=== PATIENT | male | born 1965 | race Caucasian/White ===

== ENCOUNTER 2017-10-05 01:15 | Emergency (ER) | payer MEDICAID ==
[~2017-10-05] VITALS: Ht 172.7 cm; Wt 81.6 kg
[2017-10-05 01:15] VITALS: BP 126/89
--- NOTE | 2017-10-05 01:15 | NUR ---
PT ANDIE MYERS. TAKEN TO BED 11
--- NOTE | 2017-10-05 01:25 | NUR ---
Dr. Saul evaluating patient at bedside.
--- NOTE | 2017-10-05 01:30 | NUR ---
LAB AT BEDSIDE
[2017-10-05 01:43] LABS: BASOPHILS % (AUTO) 0.6 % (0.0-2.0); EOSINOPHILS % (AUTO) 11.7 % (0.0-4.0); HEMATOCRIT 32.9 % (36-52); HEMOGLOBIN 11.5 g/dL (12.0-18.0); LYMPHOCYTES # (AUTO) 2.4 K/uL (2.0-11.5); LYMPHOCYTES % (AUTO) 27.4 % (20.5-51.1); MEAN CORPUSCULAR HEMOGLOBIN 29 pg (27-31); MEAN CORPUSCULAR HGB CONC 35 g/dL (33-37); MEAN CORPUSCULAR VOLUME 84.1 fL (80-94); MONOCYTES # (AUTO) 0.7 K/uL (0.8-1.0); MONOCYTES % (AUTO) 7.4 % (1.7-9.3); NEUTROPHILS # (AUTO) 4.7 K/uL (1.8-7.7); NEUTROPHILS % (AUTO) 52.9 % (42.2-75.2); PLATELET COUNT (AUTO) 128 K/uL (140-450); RED BLOOD CELL COUNT(AUTO) 3.91 MIL/uL (4.20-6.10); RED CELL DISTRIBUTION WIDTH 12.7 % (11.6-13.7); WHITE BLOOD COUNT (AUTO) 8.9 K/uL (4.8-10.8)
--- NOTE | 2017-10-05 01:45 | NUR ---
PT RESTING COMFORTABLY IN BED, PT AOX2, FORGETFUL AT TIMES, BEDREST AT THIS TIME. PT BIBA FOR DISLODGED L UPPER CHEST DIALYSIS CATH. PT HAS GTUBE, COLOSTOMY, SUPRAPUBIC CATH. OPEN WOUNDS NOTED ON BUTTOCKS AND PENILE SHAFT. ALL NEEDS MET AT THIS TIME.
--- NOTE | 2017-10-05 01:56 | NUR ---
X-Ray at bedside.
[2017-10-05 01:58] LABS: CHOL/HDL RATIO 3.3 (1-4.5)
[2017-10-05 01:59] LABS: ALBUMIN 3.7 g/dL (3.4-5.0); ANION GAP 13.9 (8-16); CARBON DIOXIDE 29.3 mmol/L (21-32); CREATININE 3.6 mg/dL (0.7-1.3); POTASSIUM 3.2 mmol/L (3.5-5.1); TOTAL BILIRUBIN 0.3 mg/dL (0.0-1.0)
[2017-10-05 02:07] LABS: CREATINE KINASE MB 2.6 ng/mL (0-3.6)
[2017-10-05] MEDS ORDERED: NACL 0.9% 1,000 ML IV SCH (02:28)
[2017-10-05] MEDS ORDERED: ZOLPIDEM 5 MG TAB PO PRN (02:30)
[2017-10-05] MEDS ORDERED: LORazepam 2 MG/ML VIAL IM/IVP PRN (02:30)
[2017-10-05] MEDS ORDERED: ACETAMINOPHEN 325 MG TAB PO PRN (02:30)
[2017-10-05] MEDS ORDERED: HYDROcodone/APAP 5/325 MG 1 TAB TAB PO PRN (02:30)
[2017-10-05] MEDS ORDERED: MORPHINE SULFATE 2 MG/ML SYR IVP PRN (02:30)
[2017-10-05] MEDS ORDERED: ONDANSETRON 4 MG/2 ML VIAL IM/IVP PRN (02:30)
[2017-10-05] MEDS ORDERED: DOCUSATE SODIUM 100 MG GELCAP PO PRN (02:30)
[2017-10-05 02:50] LABS: APPEARANCE,URINE CLOUDY (CLEAR); BILIRUBIN,URINE NEGATIVE (NEGATIVE); BLOOD, URINE 1+ (NEGATIVE); COLOR,URINE YELLOW (YELLOW); NITRITE, URINE NEGATIVE (NEGATIVE); PH,URINE 5.5 (5.0-9.0); UGLUCOSE NEGATIVE (NEGATIVE)
[2017-10-05 02:58] LABS: BARBITURATE, URINE NEG. ng/ml (NEG <=200); BENZODIAZEPINE, URINE NEG. ng/mL (NEG <=200); CANNABINOID, URINE NEG. ng/mL (NEG <=50); COCAINE, URINE NEG. ng/mL (NEG <=300); OPIATE, URINE NEG. ng/mL (NEG <=2000); PHENCYCLIDINE SCREEN,URINE NEG. ng/mL (NEG <=25)
[2017-10-05 02:59] LABS: MAGNESIUM 2.5 mg/dL (1.8-2.4); PHOSPHORUS 6.3 mg/dL (2.5-4.9); THYROID STIMULATING HORMONE 1.62 uIU/mL (0.34-3.74)
--- NOTE | 2017-10-05 02:59 | NUR ---
Dr. Sheehan evaluating patient at bedside.
[2017-10-05 03:03] LABS: PROTHROMBIN TIME 10.4 secs (10.8-13.4)
--- NOTE | 2017-10-05 03:45 | NUR ---
PT SLEEPING COMFORTABLY IN BED, RR EVEN AND UNLABORED, VSS, ALL NEEDS MET AT THIS TIME.
--- NOTE | 2017-10-05 04:21 | NUR ---
Patient to be transferred to [facility]. Is being transferred due to DISLODGED EMERY CATH. Receiving facility has accepting physician and available space. ER physician has signed transfer form. Patient or responsible constitution party has agreed to transfer and signed form. Patient belongings inventoried and will be sent with patient. Copy of nursing notes, lab reports, EKG, Physicians Orders and X-rays to be sent with patient. Report called to TERESA MAYS at receiving facility. [facility] ambulance service has been called for transfer. ETA is 1 HR.
--- NOTE | 2017-10-05 04:54 | NUR ---
[facility] AT BEDSIDE
[2017-10-05 04:58] VITALS: BP 119/76
--- NOTE | 2017-10-05 04:58 | NUR ---
ENDORSED REPORT TO [facility]SPORT AT THIS TIME. VSS.
--- NOTE | 2017-10-05 05:09 | NUR ---
PT TAKEN BY [facility]SP[facility] TO [facility]
[2017-10-05 06:02] LABS: RBC,URINE 0-5 (RARE) /HPF (0-5)
[2017-10-05 06:04] LABS: LEUKOCYTE ESTERASE ,URINE 3+ (NEGATIVE)
[2017-10-05 06:06] LABS: YEAST,URINE Few /HPF (None Seen)
[2017-10-06 08:22] LABS: T4 (THYROXINE) 9.6 ug/dL (4.5-12.0)
--- NOTE | 2017-10-06 16:37 | NUR ---
PATIENT TRANSFERED TO [facility] URINE CULTURE RETURNED POSITIVE FOR YEAST NO SUSCEPTABILITY REPORT AT THIS TIME.
== END 2017-10-05 05:09 | disposition short-term general hospital (02) ==
LOC: MED 01:15
DX: T82.41XA Breakdown (mechanical) of vascular dialysis catheter, initial encounter (principal); N18.6 End stage renal disease; Z99.2 Dependence on renal dialysis
CPT/HCPCS: 36415; 71045; 80053; 80061; 80305; 81001; 82550; 82553; 83036; 83735; 83880; 84100; 84134; 84436; 84443; 84479; 84484; 85025; 85610; 85730; 87086; 93005; 99285; Q0092

== ENCOUNTER 2017-10-31 13:54 | Inpatient (IN) | payer MEDICAID ==
[~2017-10-31] VITALS: Ht 167.6 cm; Wt 81.2 kg
--- NOTE | 2017-10-31 13:54 | NUR ---
PT BIBA TO ER BED 04
[2017-10-31 13:58] VITALS: BP 112/70
[2017-10-31] MEDS ORDERED: NACL 0.9% 1,000 ML IV ONE (14:08)
[2017-10-31] MEDS ORDERED: LORazepam 2 MG/ML VIAL IVP ONE (14:10)
[2017-10-31] MEDS ORDERED: ONDANSETRON 4 MG/2 ML VIAL IVP ONE (14:10)
--- NOTE | 2017-10-31 14:10 | NUR ---
52 YO M BIBA W/C/O LEFT ARM PAIN RADIATING TO L CHEST. PT AWAKE ALERT AND ORIENTED . EMS STATES THAT PT WAS 2 HRS IN TO DIALYSIS, WHEN PAIN STARTED, PT WANTED TO STOP DIALYSIS. PT RESEVED 24ASA IN ROUTE. PT DENIES ANY SOB, PT WITH N/V ON ARRIVAL. BS 140 INROUTE. ROGERS CATH TO R UPPER CHEST, SUPRAPUBIC FOLY, COLOSTOMY. LS CLEAR THROUGHOUT, BS ACTIVE. WILL CONTINUE TO MONITOR HX OF HTN, DM. DIALYSIS TUS,MARIYA,SAT
[2017-10-31] MEDS ORDERED: VITA1TAB44 PO (14:31)
[2017-10-31] MEDS ORDERED: LORA-476 PO (14:31)
[2017-10-31] MEDS ORDERED: ACET-2619 PO (14:31)
[2017-10-31] MEDS ORDERED: LACT10SO1 PO (14:31)
[2017-10-31] MEDS ORDERED: TRAM50TA1 PO (14:31)
[2017-10-31] MEDS ORDERED: PRO5 PO (14:31)
[2017-10-31] MEDS ORDERED: LACT1CAP59 PO (14:31)
[2017-10-31] MEDS ORDERED: ABI10 PO (14:31)
[2017-10-31] MEDS ORDERED: DOCU-299 PO (14:31)
[2017-10-31] MEDS ORDERED: HUM SUBQ (14:31)
[2017-10-31] MEDS ORDERED: ASCO500T45 PO (14:31)
[2017-10-31] MEDS ORDERED: ATOR20TA PO (14:31)
[2017-10-31] MEDS ORDERED: PHO667 PO (14:31)
[2017-10-31] MEDS ORDERED: SENN-72 PO (14:31)
--- NOTE | 2017-10-31 14:39 | NUR ---
RN AND LAB AT BEDSIDE ADMINISTRATIVE AIDE TO ATTEMPT ABG AT A LATER TIME NO SOB NOTED
--- NOTE | 2017-10-31 15:00 | NUR ---
X RAY AT BEDSIDE
--- NOTE | 2017-10-31 15:09 | NUR ---
RT AT BEDSIDE
[2017-10-31 15:15] LABS: BASOPHILS # (AUTO) 0.1 K/uL (0.00-0.22); BASOPHILS % (AUTO) 0.7 % (0.0-2.0); EOSINOPHILS % (AUTO) 13.3 % (0.0-4.0); HEMATOCRIT 34.2 % (36-52); HEMOGLOBIN 11.1 g/dL (12.0-18.0); LYMPHOCYTES # (AUTO) 1.5 K/uL (2.0-11.5); MEAN CORPUSCULAR HEMOGLOBIN 28 pg (27-31); MEAN CORPUSCULAR HGB CONC 32 g/dL (33-37); MEAN CORPUSCULAR VOLUME 86.1 fL (80-94); MONOCYTES # (AUTO) 0.5 K/uL (0.8-1.0); MONOCYTES % (AUTO) 5.8 % (1.7-9.3); NEUTROPHILS # (AUTO) 4.8 K/uL (1.8-7.7); NEUTROPHILS % (AUTO) 61.2 % (42.2-75.2); PLATELET COUNT (AUTO) 150 K/uL (140-450); RED BLOOD CELL COUNT(AUTO) 3.97 MIL/uL (4.20-6.10); RED CELL DISTRIBUTION WIDTH 12.4 % (11.6-13.7); WHITE BLOOD COUNT (AUTO) 7.9 K/uL (4.8-10.8)
[2017-10-31 15:41] LABS: ALBUMIN 4.6 g/dL (3.4-5.0); CARBON DIOXIDE 27.1 mmol/L (21-32); CREATININE 1.8 mg/dL (0.7-1.3); POTASSIUM 3.1 mmol/L (3.5-5.1); TOTAL BILIRUBIN 0.6 mg/dL (0.0-1.0)
--- NOTE | 2017-10-31 15:49 | NUR ---
CRITICAL LAB VALUE RECEIVED AT THIS TIME, LACTIC ACID 2.4, ER MD LIZANDRO RICE DPRIMARY NURSE NOTIFIED.
[2017-10-31 15:55] LABS: AMYLASE 67 U/L (25-115); LIPASE 132 U/L (73-393)
--- NOTE | 2017-10-31 17:20 | NUR ---
PT RESTING IN BED IN NO APPEARENT DISTRESS
[2017-10-31] MEDS ORDERED: ONDANSETRON 4 MG/2 ML VIAL IVP PRN (19:25)
[2017-10-31] MEDS ORDERED: MORPHINE SULFATE 2 MG/ML SYR IVP PRN (19:25)
--- NOTE | 2017-10-31 20:20 | NUR ---
RECEIVED REPORT FROM DAY SHIFT RN FOR CONTINUITY OF CARE. PT IS A/OX1, ON ROOM AIR, CHINESE SPEAKING ONLY. PT IS ABLE TO MAKE NEEDS KNOWN, ABLE TO FOLLOW COMMANDS. RESPIRATIONS EVEN AND UNLABORED AT THE MOMENT. PT HAS DRY AND REDDENED SKIN ON BUTTOCKS/SACRAL AREA, BUT SKIN IS INTACT. PT HAS 24G IV TO RIGHT HAND, ASYMPTOMATIC, INTACT AND PATENT. PT HAS A COLOSTOMY BAG TO LUQ AND A SUPRAPUBIC CATHETER. OBTAINED MRSA SWAB AND SENT TO LAB. DISCUSSED PLAN OF CARE WITH PT, PT VERBALIZED UNDERSTANDING. VITAL SIGNS WITHIN NORMAL LIMITS. PT STABLE, NO SIGNS OF DISTRESS NOTED AT THIS TIME. BED IN LOWEST POSITION, BED ALARM ON. CALL LIGHT WITHIN REACH, WILL CONTINUE TO MONITOR.
--- NOTE | 2017-10-31 20:24 | NUR ---
Patient will be admitted to care of DR. ARTEAGA. Admited to TELE. Will go to ro[facility] 114. Belongings list completed. Report to JUDI MOORE.
[2017-10-31 21:50] LABS: PROTHROMBIN TIME 9.2 secs (10.8-13.4)
[2017-10-31 22:00] VITALS: BP 116/73
[2017-11-01] VITALS: BP 109/72
--- NOTE | 2017-11-01 | NUR ---
VITAL SIGNS WITHIN NORMAL LIMITS. PT STABLE, NO SIGNS OF DISTRESS NOTED AT THIS TIME. BED IN LOWEST POSITION, BED ALARM ON. CALL LIGHT WITHIN REACH, WILL CONTINUE TO MONITOR.
[2017-11-01 04:00] VITALS: BP 106/71
--- NOTE | 2017-11-01 06:35 | NUR ---
CHANGED COLOSTOMY BAG AND CLEANED PT.
--- NOTE | 2017-11-01 07:31 | NUR ---
ENDORSED PT TO DAY SHIFT RN FOR CONTINUITY OF CARE. PT IN STABLE CONDITION.
--- NOTE | 2017-11-01 07:32 | NUR ---
RECEIVED PT ON BED, AAO WITH PERIODS OF CONFUSION, REORIENTATION PROVIDED. NO SOB NOTED. NO C/O PAIN AT THIS TIME. IV TO LT HAND PATENT AND INTACT. CHEST CLEAR. ABDOMEN SOFT, BOWEL SOUNDS PRESENT, WITH COLOSTOMY TO LT LOWER QUADRANT, NEW BAG APPLIED BY NIGHTSHIFT, NO STOOLS NOTED YET. WITH CROW DRAINING MODERATE AMOUNTS OF CLOUDY, ALLISON URINE. INSTRUCTED PT TO CALL FOR ASSISTANCE, CALL LIGHT WITHIN REACH, PT VERBALIZED PARTIAL UNDERSTANDING.
[2017-11-01 07:36] LABS: BASOPHILS # (AUTO) 0.1 K/uL (0.00-0.22); BASOPHILS % (AUTO) 0.7 % (0.0-2.0); EOSINOPHILS # (AUTO) 1.5 K/uL (0-0.4); EOSINOPHILS % (AUTO) 20.6 % (0.0-4.0); HEMOGLOBIN 9.8 g/dL (12.0-18.0); LYMPHOCYTES # (AUTO) 2.1 K/uL (2.0-11.5); MEAN CORPUSCULAR HEMOGLOBIN 29 pg (27-31); MEAN CORPUSCULAR HGB CONC 34 g/dL (33-37); MEAN CORPUSCULAR VOLUME 85.3 fL (80-94); MONOCYTES # (AUTO) 0.6 K/uL (0.8-1.0); MONOCYTES % (AUTO) 8.1 % (1.7-9.3); NEUTROPHILS # (AUTO) 2.9 K/uL (1.8-7.7); NEUTROPHILS % (AUTO) 40.6 % (42.2-75.2); PLATELET COUNT (AUTO) 127 K/uL (140-450); RED CELL DISTRIBUTION WIDTH 12.3 % (11.6-13.7); WHITE BLOOD COUNT (AUTO) 7.1 K/uL (4.8-10.8)
[2017-11-01 07:59] VITALS: BP 104/69
[2017-11-01 07:59] LABS: CREATINE KINASE MB 10.1 ng/mL (0-3.6)
[2017-11-01 07:59] LABS: APPEARANCE,URINE SL CLOUDY (CLEAR); BILIRUBIN,URINE NEGATIVE (NEGATIVE); BLOOD, URINE 2+ (NEGATIVE); COLOR,URINE YELLOW (YELLOW); LEUKOCYTE ESTERASE ,URINE 3+ (NEGATIVE); NITRITE, URINE NEGATIVE (NEGATIVE); PH,URINE 6.5 (5.0-9.0); UGLUCOSE NEGATIVE (NEGATIVE)
[2017-11-01 08:06] LABS: ALBUMIN 3.7 g/dL (3.4-5.0); CARBON DIOXIDE 28.1 mmol/L (21-32); CREATININE 2.2 mg/dL (0.7-1.3); MAGNESIUM 1.8 mg/dL (1.8-2.4); PHOSPHORUS 2.8 mg/dL (2.5-4.9); POTASSIUM 3.1 mmol/L (3.5-5.1); TOTAL BILIRUBIN 0.4 mg/dL (0.0-1.0)
[2017-11-01 08:11] LABS: RBC,URINE 3-10 (FEW) /HPF (0-5); WBC,URINE 80-100 /HPF (0-5)
--- NOTE | 2017-11-01 08:35 | NUR ---
PT CONSUMED 60% OF BREAKFAST SERVED. FOOD TOLERATED WELL.
[2017-11-01] MEDS ORDERED: ENOXAPARIN 30 MG/0.3 ML SYR SUBQ SCH (09:00)
[2017-11-01] MEDS ORDERED: ASPIRIN 325 MG TAB PO SCH (09:00)
--- NOTE | 2017-11-01 10:00 | NUR ---
PT STATED THAT HE LOST HIS PAIR OF GLASSES AND CELLPHONE. CHECKED PT'S ROOM, FOUND PT'S GLASSES UNDERNEATH THE SHEET, PT'S CELL PHONE WAS FOUND IN THE NURSE'S STATION BEING CHARGED. GAVE PT HIS GLASSES AND CELLPHONE, INSTRUCTED TO KEEP IT WITHIN HIM. PT VERBALIZED UNDERSTANDING.
[2017-11-01 12:00] VITALS: BP 91/59
--- NOTE | 2017-11-01 12:10 | NUR ---
PT ATE 50% OF LUNCH SERVED. FOOD TOLERATED WELL.
--- NOTE | 2017-11-01 13:00 | NUR ---
PT'S 4TH TROPONIN RESULT IS NEGATIVE. NO C/O CHEST PAIN NOTED.
--- NOTE | 2017-11-01 13:59 | NUR ---
CALLED KEVIN GUALLPA AND GAVE ME THE [facility]IC TRANSPORTATION . SPOKE TO [facility] AND GAVE RESERVATION# [phone]. MICAELA MOORE MADE AWARE.
--- NOTE | 2017-11-01 15:00 | NUR ---
REPORT GIVEN TO RIO AT [facility] WHERE PT CAME FROM ([phone]), PT IS GOING BACK TO ROOM 602-BED B. VOICEMAIL MESSAGE LEFT TO PT'S SON GUILLERMO BARTHOLOMEW ([phone]) REGARDING THE DISCHARGE. DRAINED 380 MLS OF SLIGHTLY CLOUDY URINE FROM SUPRAPUBIC CATHETER. NO OUTPUT NOTED ON COLOSTOMY, BAG CLEAN AND INTACT. RT CHEST HD DIALYSIS CATHETER IN PLACE, SITE CLEAN AND DRY. DISCHARGE INSTRUCTIONS GIVEN TO PT, VERBALIZED UNDERSTANDING. ARM BANDS AND IV REMOVED, CANNULA TIP INTACT.
--- NOTE | 2017-11-01 15:10 | NUR ---
PT WHEELED OUT TO THE PARKING LOT AND HELPED TRANSFERRED TO THE TRANSPORT VEHICLE. PT IS D/C BACK TO [facility] IN STABLE CONDITION. NO COMPLAINTS MADE, ALL BELONGINGS WITH HIM, GLASSES, CELLPHONE AND WHEELCHAIR.
--- NOTE | 2017-11-03 09:25 | NUR ---
RETRO FAXED ER REPORT, H&P AND DISCHARGE INSTRUCTIONS TO [facility] [phone] AND [facility]ENNEY [facility]ARMS/[facility] [phone]
== END 2017-11-01 15:10 | DRG 203 ==
LOC: MED 13:54 → OBSVTOIN 19:30 → MTU 19:30
PROVIDERS: ADMIT Hospitalist; ATTEND Hospitalist
DX: M94.0 Chondrocostal junction syndrome [Tietze] (principal); G37.3 Acute transverse myelitis in demyelinating disease of central nervous system; E11.22 Type 2 diabetes mellitus with diabetic chronic kidney disease; N18.6 End stage renal disease; I12.0 Hypertensive chronic kidney disease with stage 5 chronic kidney disease or end stage renal disease; E78.5 Hyperlipidemia, unspecified; D64.9 Anemia, unspecified; Z99.2 Dependence on renal dialysis; Z93.6 Other artificial openings of urinary tract status; Z93.3 Colostomy status; Z79.899 Other long term (current) drug therapy
CPT/HCPCS: 36415; 71045; 80053; 81001; 82150; 82550; 82553; 82948; 83605; 83690; 83735; 83874; 83880; 84100; 84484; 85025; 85610; 85730; 87040; 87081; 87086; 87186; 93005; 96361; 96374; 96375; 99291; J1650; J2060; J2405

== ENCOUNTER 2017-11-04 10:01 | Inpatient (IN) | payer MEDICAID ==
[~2017-11-04] VITALS: Ht 172.7 cm; Wt 76.7 kg
[~2017-11-04 10:01] MED LIST: ABI10 PO; ACET-2619 PO; ASCO500T45 PO; ATOR20TA PO; DOCU-299 PO; HUM SUBQ; LACT10SO1 PO; LACT1CAP59 PO; LORA-476 PO; PHO667 PO; PRO5 PO; SENN-72 PO; TRAM50TA1 PO; VITA1TAB44 PO
--- NOTE | 2017-11-04 10:01 | NUR ---
Patient BIBA BLS, transferred to bed 8. RN evaluating patient at bedside.
[2017-11-04 10:02] VITALS: BP 111/69
--- NOTE | 2017-11-04 10:10 | NUR ---
PATIENT ANDIE WITH COMPLAINTS OF CHEST PAIN X 4 MONTHS. PER [facility] PATIENT HAS A HX OF CALLING 911 FOR NON-EMERGENCY MATTER. HX OF MENTAL HEALTH ISSUES. PATIENT REPORTS CHEST PAIN X 4 MONTHS 01/13. DENIES N/V/D; SKIN AT RIGHT KNEE APPEARS TO BE OPEN WOUND, PICTURES TAKEN; LUNGS CLEAR BL; HR EVEN AND REGULAR; PT DENIES ANY FEVER, SOB, OR COUGH AT THIS TIME; VSS; PATIENT POSITIONED FOR COMFORT; HOB ELEVATED; BEDRAILS UP X2; BED DOWN. ER MD MADE AWARE OF PT STATUS.
--- NOTE | 2017-11-04 11:30 | NUR ---
Patient appears to be resting comfortably in bed. Vital Signs within normal limits. Respirations even and unlabored.
[2017-11-04 11:53] LABS: BASOPHILS % (AUTO) 0.7 % (0.0-2.0); EOSINOPHILS # (AUTO) 1.2 K/uL (0-0.4); EOSINOPHILS % (AUTO) 15.6 % (0.0-4.0); HEMATOCRIT 31.4 % (36-52); HEMOGLOBIN 10.5 g/dL (12.0-18.0); LYMPHOCYTES # (AUTO) 1.5 K/uL (2.0-11.5); LYMPHOCYTES % (AUTO) 20.5 % (20.5-51.1); MEAN CORPUSCULAR HEMOGLOBIN 28 pg (27-31); MEAN CORPUSCULAR HGB CONC 33 g/dL (33-37); MEAN CORPUSCULAR VOLUME 85.3 fL (80-94); MONOCYTES # (AUTO) 0.5 K/uL (0.8-1.0); MONOCYTES % (AUTO) 6.8 % (1.7-9.3); NEUTROPHILS # (AUTO) 4.3 K/uL (1.8-7.7); NEUTROPHILS % (AUTO) 56.4 % (42.2-75.2); PLATELET COUNT (AUTO) 146 K/uL (140-450); RED BLOOD CELL COUNT(AUTO) 3.68 MIL/uL (4.20-6.10); RED CELL DISTRIBUTION WIDTH 12.5 % (11.6-13.7); WHITE BLOOD COUNT (AUTO) 7.6 K/uL (4.8-10.8)
[2017-11-04 11:54] LABS: APPEARANCE,URINE CLOUDY (CLEAR); BILIRUBIN,URINE NEGATIVE (NEGATIVE); BLOOD, URINE 1+ (NEGATIVE); COLOR,URINE YELLOW (YELLOW); LEUKOCYTE ESTERASE ,URINE 3+ (NEGATIVE); NITRITE, URINE NEGATIVE (NEGATIVE); UGLUCOSE NEGATIVE (NEGATIVE)
[2017-11-04 12:00] LABS: PROTHROMBIN TIME 9.9 secs (10.8-13.4)
[2017-11-04 12:01] LABS: ANION GAP 11.3 (8-16); CARBON DIOXIDE 28.8 mmol/L (21-32); CREATININE 2.9 mg/dL (0.7-1.3); POTASSIUM 3.1 mmol/L (3.5-5.1)
[2017-11-04 12:05] LABS: ALBUMIN 3.9 g/dL (3.4-5.0); TOTAL BILIRUBIN 0.5 mg/dL (0.0-1.0)
[2017-11-04 12:07] LABS: RBC,URINE 3-10 (FEW) /HPF (0-5); WBC,URINE TOO MANY TO COUNT /HPF (0-5)
--- NOTE | 2017-11-04 12:40 | NUR ---
Patient appears to be resting comfortably in bed. Vital Signs within normal limits. Respirations even and unlabored.
[2017-11-04 13:30] VITALS: BP 113/79
--- NOTE | 2017-11-04 13:35 | NUR ---
RECEIVED PT ON UNIT VIA [employer] PT. PT IS AAOX2, BEDBOUND, PT HAS IV ON HIS LEFT HAND, PATENT, INTACT, FLUSHING WELL, PT IS ON O2 2L NC, PT HAS A SUPRAPUBIC CATHETER, COLOSTOMY BAG ON LEFT QUADRANT, PT HAS SKIN TEAR ON LEFT FRY, PT HAS DRYNESS ON HIS BUTTOCKS, NO S/S OF RESPIRATORY DISTRESS OR DISCOMFORT NOTED, CALL LIGHT WITHIN REACH, WILL CONTINUE TO MONITOR.
[2017-11-04] MEDS ORDERED: ONDANSETRON 4 MG/2 ML VIAL IVP PRN (15:10)
[2017-11-04] MEDS ORDERED: HYDROcodone/APAP 5/325 MG 1 TAB TAB PO PRN (15:10)
[2017-11-04] MEDS ORDERED: ACETAMINOPHEN 325 MG TAB PO PRN (15:10)
[2017-11-04] MEDS ORDERED: ALBUTEROL 0.083% 2.5 MG/3 ML NEBU IH PRN (15:10)
--- NOTE | 2017-11-04 15:30 | NUR ---
PT SLEEPING IN BED AT THIS TIME, NO S/S OF DISTRESS NOTED, CALL LIGHT WITHIN REACH.
[2017-11-04 16:00] VITALS: BP 111/76
--- NOTE | 2017-11-04 17:00 | NUR ---
PT RESTING IN BED TALKING ON HIS CELL PHONE, CALL LIGHT WITHIN REACH.
[2017-11-04] MEDS ORDERED: POTASSIUM CHLORIDE 10 MEQ TABER PO SCH (19:00)
--- NOTE | 2017-11-04 19:25 | NUR ---
ENDORSED PT TO HYDRAULIC LIFT OPERATOR NURSE FOR CONTINUITY OF CARE. PT STABLE AT THIS TIME.
--- NOTE | 2017-11-04 19:35 | NUR ---
RECEIVED REPORT FROM DAY SHIFT RN, PATIENT RESTING IN BED, NO S/S OF DISTRESS NOTED, RESPIRATION EVEN AND UNLABORED, O2SAT 97% VIA NASAL CANNULAR 2L/MIN. DIALYSIS ACCESS NOTED TO THE RIGHT UPPER CHEST, CLEAN AND DRY. IV TO THE RIGHT HAND PATENT AND INTACT, SALINE LOCK. SUPRAPUBIC CATHETER IN PLACE, DRAINING URINE BY GRAVITY, COLOSTOMY BAG IN PLACE, DRY AND CLEAN. CALL LIGHT WITHIN REACH, SAFETY MEASURE ENSURED, WILL CONTINUE TO MONITOR.
[2017-11-04 20:00] VITALS: BP 93/62
--- NOTE | 2017-11-04 21:30 | NUR ---
PATIENT IS SLEEPING, NO S/S OF DISTRESS NOTED, RESPIRATION EVEN AND UNLABORED, CALL LIGHT WITHIN REACH, SAFETY MEASURE ENSURED, WILL CONTINUE TO MONITOR.
[2017-11-05] VITALS: BP 95/62
--- NOTE | 2017-11-05 00:15 | NUR ---
PATIENT STATED," I DON'T LIKE THE COLOR OF MY GOWN." EDUCATED PATIENT THE YELLOW GOWN IS PART OF FALL RISK PROTOCOL, BUT PATIENT SAID," I DON'T LIKE IT, I WANT THE BLUE ONE." PUTTING BLUE GOWN ON AND PATIENT RESTING IN BED, VITAL SIGNS STABLE. CALL LIGHT WITHIN REACH, SAFETY MEASURE ENSURED, WILL CONTINUE TO MONITOR.
--- NOTE | 2017-11-05 02:29 | NUR ---
PENDING 15MINS IN THE ROOM MOVING CUPS AND TABLE TO SPECIFIC AREA PATIENT REQUESTED. PATIENT RESTING IN BED, NO S/S OF DISTRESS NOTED, CALL LIGHT WITHIN REACH, SAFETY MEASURE ENSURED, WILL CONTINUE TO MONITOR.
[2017-11-05 04:00] VITALS: BP 93/59
--- NOTE | 2017-11-05 04:40 | NUR ---
REPOSITIONED PATIENT TO THE RIGHT, BUT PATIENT ASKED ME TO REMOVE ALL THE PILLOWS, AND SAID," I DON'T WANT PILLOWS NOW, TAKE THOSE PILLOWS OUT." EDUCATED PATIENT THE IMPORTANCE OF CHANGING POSITION, BUT PATIENT STILL REFUSED TO BE POSITIONED ON HIS LEFT SIDE OR RIGHT SIDE. PATIENT ALSO ASKED ME WHERE HIS NURSE WAS, INFORMED THE PATIENT THAT I AM HIS NURSE, BUT PATIENT BECAME UPSET AND SAID," YOU WERE NOT MY NURSE." EXPLAINED TO THE PATIENT I HELPED HIM WITH THE CUPS AND TABLE, AND PUT BLUE GOWN FOR HIM EARLIER, PATIENT SAID," OKAY." CALL LIGHT WITHIN REACH, SAFETY MEASURE ENSURED, WILL CONTINUE TO MONITOR.
--- NOTE | 2017-11-05 06:27 | NUR ---
NO CHANGE IN CONDITION, PATIENT IS SLEEPING, NO S/S OF DISTRESS NOTED, CALL LIGHT WITHIN REACH, SAFETY MEASURE ENSURED, WILL CONTINUE TO MONITOR.
[2017-11-05 06:32] LABS: BASOPHILS # (AUTO) 0.1 K/uL (0.00-0.22); BASOPHILS % (AUTO) 0.8 % (0.0-2.0); EOSINOPHILS # (AUTO) 1.2 K/uL (0-0.4); EOSINOPHILS % (AUTO) 17.2 % (0.0-4.0); HEMATOCRIT 29.7 % (36-52); LYMPHOCYTES # (AUTO) 1.9 K/uL (2.0-11.5); LYMPHOCYTES % (AUTO) 27.7 % (20.5-51.1); MEAN CORPUSCULAR HEMOGLOBIN 29 pg (27-31); MEAN CORPUSCULAR HGB CONC 34 g/dL (33-37); MEAN CORPUSCULAR VOLUME 84.9 fL (80-94); MONOCYTES # (AUTO) 0.5 K/uL (0.8-1.0); MONOCYTES % (AUTO) 7.9 % (1.7-9.3); NEUTROPHILS # (AUTO) 3.1 K/uL (1.8-7.7); NEUTROPHILS % (AUTO) 46.4 % (42.2-75.2); PLATELET COUNT (AUTO) 140 K/uL (140-450); RED CELL DISTRIBUTION WIDTH 12.4 % (11.6-13.7); WHITE BLOOD COUNT (AUTO) 6.8 K/uL (4.8-10.8)
--- NOTE | 2017-11-05 07:16 | NUR ---
ENDORSED PLAN OF CARE TO DAY SHIFT RN, PATIENT RESTING IN BED, IN STABLE CONDITION.
--- NOTE | 2017-11-05 07:16 | NUR ---
RECEIVED REPORT FROM NIGHT RN AT BEDSIDE. PT SLEEPING IN BED. AAOX2. NO S/S OF ACUTE DISTRESS. PT DENIES PAIN. IV SITE PATENT AND INTACT. PLAN OF CARE DISCUSSED. CALL LIGHT WITHIN REACH. SAFETY MEASURES ENSURED. WILL CONTINUE TO MONITOR.
[2017-11-05] MEDS: ENOXAPARIN 40 MG/0.4 ML SYR SUBQ SCH (08:16)
--- NOTE | 2017-11-05 08:16 | NUR ---
DUE MEDICATIONS GIVEN. PT TOLERATED WELL.
[2017-11-05 09:40] VITALS: BP 128/60
--- NOTE | 2017-11-05 10:15 | NUR ---
RECEIVED A PHONE CALL FROM THE FIRE DEPARTMENT STATING THE PATIENT WAS TRYING TO ARRANGE TRANSPORTATION. WENT TO PT'S ROOM. PT AAXO2, CONFUSED AND NOT SPEAKING FULL THOUGHTS. PT SPEAKING MOSTLY IN MICRONESIAN. GIGI MEDRANO HELPED TO TRANSLATE. PT STATES HE DOESN'T HAVE A ROOM, THAT HE HAS DIALYSIS AND NEEDS TRANSPORT. GIGI TRIED TO REORIENT PT AND EXPLAIN THAT HE WOULD BE GETTING DIALYSIS TODAY IN THE ROOM HE WAS IN. PT UNABLE TO COMPREHEND AT THIS TIME. PER GIGI PT IS CONFUSED AND NOT MAKING SENSE WHEN SPEAKING.
--- NOTE | 2017-11-05 10:27 | NUR ---
PATIENT HAS BEEN SCREENED AND CATEGORIZED MODERATE NUTRITION RISK. PATIENT WILL BE SEEN WITHIN 3-5 DAYS OF ADMISSION. 11/07/17 -11/09/[address]
[2017-11-05 12:00] VITALS: BP 107/60
--- NOTE | 2017-11-05 13:33 | NUR ---
LAWNMOWER REPAIR MECHANIC AT BEDSIDE. NO S/S OF ACUTE DISTRESS. PT DENIES PAIN. CALL LIGHT WITHIN REACH. SAFETY MEASURES ENSURED. WILL CONTINUE TO MONITOR.
[2017-11-05] MEDS ORDERED: NAPROXEN 500 MG TAB PO PRN (14:50)
--- NOTE | 2017-11-05 15:28 | NUR ---
PT RESTING IN BED. NO S/S OF ACUTE DISTRESS. PT DENIES PAIN AT THIS TIME. CALL LIGHT WITHIN REACH SAFETY MEASURES ENSURED. WILL CONTINUE TO MONITOR.
--- NOTE | 2017-11-05 15:29 | NUR ---
PT RESTING IN BED. NO S/S OF ACUTE DISTRESS. DIALYSIS NURSE AT BEDSIDE. WILL CONTINUE TO MONITOR.
[2017-11-05 16:00] VITALS: BP 117/61
--- NOTE | 2017-11-05 19:21 | NUR ---
ENDORSED PLAN OF CARE TO NIGHT RN.
--- NOTE | 2017-11-05 19:40 | NUR ---
RECEIVED REPORT FROM DAY SHIFT RN, PATIENT WAS SLEEPING, BUT EASY TO AROUSE, ORIENTED X2, NO S/S OF DISTRESS NOTED, RESPIRATION EVEN AND UNLABORED, O2SAT 97% ON ROOM AIR. DIALYSIS ACCESS NOTED TO THE RIGHT UPPER CHEST, CLEAN AND DRY. IV TO THE RIGHT HAND PATENT AND INTACT, SALINE LOCK. SUPRAPUBIC CATHETER IN PLACE, DRAINING URINE BY GRAVITY, COLOSTOMY BAG IN PLACE, DRY AND CLEAN. CALL LIGHT WITHIN REACH, SAFETY MEASURE ENSURED, WILL CONTINUE TO MONITOR.
[2017-11-05 19:52] VITALS: BP 100/70
--- NOTE | 2017-11-05 22:15 | NUR ---
PATIENT IS SLEEPING, NO S/S OF DISTRESS NOTED, RESPIRATION EVEN AND UNLABORED. CALL LIGHT WITHIN REACH, SAFETY MEASURE ENSURED, WILL CONTINUE TO MONITOR.
[2017-11-06] VITALS: BP 100/71
--- NOTE | 2017-11-06 00:24 | NUR ---
VITAL SIGNS STABLE, NO S/S OF DISTRESS NOTED, RESPIRATION EVEN AND UNLABORED, REFUSED TO BE POSITIONED ON HIS SIDE, EDUCATED PATIENT THE IMPORTANCE OF CHANGING POSITION, BUT PATIENT STATED," NO, I AM OKAY NOW." CALL LIGHT WITHIN REACH, SAFETY MEASURE ENSURED, WILL CONTINUE TO MONITOR.
--- NOTE | 2017-11-06 02:37 | NUR ---
PATIENT WAS SLEEPING, EASY TO AROUSE, REFUSED TO BE REPOSITIONED, CALL LIGHT WITHIN REACH, SAFETY MEASURE ENSURED, WILL CONTINUE TO MONITOR.
[2017-11-06 04:10] VITALS: BP 111/72
--- NOTE | 2017-11-06 04:16 | NUR ---
VITAL SIGNS STABLE, NO S/S OF DISTRESS NOTED, RESPIRATION EVEN AND UNLABORED, CALL LIGHT WITHIN REACH, SAFETY MEASURE ENSURED, WILL CONTINUE TO MONITOR.
--- NOTE | 2017-11-06 06:35 | NUR ---
PATIENT WAS SLEEPING, EASY TO AROUSE, NO S/S OF DISTRESS NOTED, CALL LIGHT WITHIN REACH, SAFETY MEASURE ENSURED, WILL CONTINUE TO MONITOR.
--- NOTE | 2017-11-06 07:21 | NUR ---
ENDORSED PLAN OF CARE TO DAY SHIFT RN, PATIENT IS IN STABLE CONDITION.
--- NOTE | 2017-11-06 07:25 | NUR ---
RECEIVED PT FROM SHEETROCK APPLICATOR NURSE, PT IS AAOX3, PT IS SLEEPING IN BED BUT EASILY AROUSED, PT IS IN SEMI FOWLERS POSITION, PT HAS IV ON HIS LEFT HAND, PATENT, INTACT, FLUSHING WELL, PT HAS LEFT FRY SKIN TEAR, SACRAL DRYNESS, PT HAS HEMODIALYSIS ACCESS ON RIGHT UPPER CHEST, NO S/S OF RESPIRATORY DISTRESS OR DISCOMFORT NOTED, DISCUSSED PLAN OF CARE WITH PT, PT REINFORCEMENT NEEDED, SAFETY/FALL PRECAUTIONS ARE IN PLACE, CALL LIGHT IS WITHIN REACH, WILL CONTINUE TO MONITOR.
[2017-11-06 08:00] VITALS: BP 111/73
[2017-11-06] MEDS: ENOXAPARIN 40 MG/0.4 ML SYR SUBQ SCH (08:23)
[2017-11-06 12:00] VITALS: BP 106/63
--- NOTE | 2017-11-06 12:03 | NUR ---
CALLED LIZ NUNEZ, SINCE PATIENT IF OUT OF AREA, REVIEWS GO TO [facility]. I CALLED [facility] AND SPOKE WITH ALONG, [phone]. SHE SAID TO FAX REVIEWS TO [facility] [phone]. FAXED 11/05/17 AND 3907 REVIEWS WITH ER REPORT AND H&P TO [facility].
--- NOTE | 2017-11-06 13:08 | NUR ---
CALLED [facility] [place] [phone] AND SET UP WC TRANSPORT. I CALLED BACK AND SPOKE WITH VALERIA. HE SAID PICKUP WILL BE AT 4P.M. RESERVATION #[id number].
--- NOTE | 2017-11-06 13:14 | NUR ---
Rn Occupational Health Note: [facility]. Per Maureen from [facility] , patient can go to room 602B after 3pm today, accepting physician is , lining caser Vilma rico.
--- NOTE | 2017-11-06 13:15 | NUR ---
CALLED POOL MOORE THE PATIENT WILL GO TO ROOM [address]B UNDER DR. TOMAS AT [facility]. THE PICKUP WILL BE BhavinPGilma BENTON RN AWARE.
--- NOTE | 2017-11-06 15:00 | NUR ---
CALLED [facility] AT [phone] AND GAVE REPORT TO
--- NOTE | 2017-11-06 16:15 | NUR ---
PT DISCHARGE INSTRUCTIONS GIVEN, IV REMOVED, CATHETER TIP INTACT, ID WRIST BAND REMOVED. PT STABLE UPON DISCHARGE, PICKED UP BY [facility].
== END 2017-11-06 16:15 | DRG 351 ==
LOC: MED 10:01 → MTU 12:53
PROVIDERS: ADMIT Family Medicine; ATTEND Internal Medicine Pulmonary Disease
PROC: 5A1D70Z Performance of Urinary Filtration, Intermittent, Less than 6 Hours Per Day (ICD-10-PCS; principal; 2017-11-05)
DX: M19.019 Primary osteoarthritis, unspecified shoulder (principal); G37.3 Acute transverse myelitis in demyelinating disease of central nervous system; N18.6 End stage renal disease; I12.0 Hypertensive chronic kidney disease with stage 5 chronic kidney disease or end stage renal disease; E11.22 Type 2 diabetes mellitus with diabetic chronic kidney disease; D64.9 Anemia, unspecified; E78.5 Hyperlipidemia, unspecified; E87.6 Hypokalemia; E11.65 Type 2 diabetes mellitus with hyperglycemia; E83.52 Hypercalcemia; I25.10 Atherosclerotic heart disease of native coronary artery without angina pectoris; R07.9 Chest pain, unspecified; Z99.2 Dependence on renal dialysis; Z79.899 Other long term (current) drug therapy; Z79.4 Long term (current) use of insulin; Z93.3 Colostomy status
CPT/HCPCS: 36415; 71045; 80053; 81001; 83605; 83880; 84484; 85025; 85610; 85730; 87081; 87086; 87186; 93005; 99285; J1650; J7030; Q0092

== ENCOUNTER 2017-12-24 18:04 | Emergency (ER) | payer MEDICAID ==
[~2017-12-24] VITALS: Ht 167.6 cm; Wt 81.6 kg
--- NOTE | 2017-12-24 18:04 | NUR ---
Cristian ely in [facility] - 12/24/17 at 1806 by MEDHT PT BIBA BLS TO BED 8
--- NOTE | 2017-12-24 18:06 | NUR ---
PT BIBA BLS TO BED 1
[2017-12-24 18:15] VITALS: BP 103/66
--- NOTE | 2017-12-24 18:15 | NUR ---
PT. BIB AMBULANCE FROM [facility] DUE TO ABNORMAL ULTRASOUND. ACCORDING TO REPORT FROM FACILITY " PT. HAS BLOOD CLOT ON L SUBCLAVIAN VEIN". PT IS AAOX3 , R DIALYSIS SHUNT NOTED TO R SIDE OF CHEST. RR EVEN AND UNLABORED. CROW CATH PRESENT UPON ARRIVAL FROM FACILITY. COLOSTOMY BAG PRESENT WITH GREEN STOOL NOTED. PT HAS L KNEE BRUISE. PT. HAS 7/10 ACHING PAIN ALL OVER ONGOING SINCE "STROKE A YEAR AGO " PER PATIENT. DENIES N/V/D. L ARM SWELLING 2+ NOTED , NON PITTING. ER MD NOTIFIED. VSS. BED IN LOWEST POSITION. WILL CONTINUE TO MONITOR.
--- NOTE | 2017-12-24 19:13 | NUR ---
PT SITTING UP IN BED, WAITING RESULTS. PT VITALS STABLE.
--- NOTE | 2017-12-24 19:15 | NUR ---
Pt report given to TERESA WALL . Transfer of care at this time.
--- NOTE | 2017-12-24 19:40 | NUR ---
EKG PERFORMED AT BEDSIDE, PT COVERED WITH GOWN AND BLANKET DURING PROCEDURE. NORMAL SINUS RHYTHM
[2017-12-24 20:03] LABS: BASOPHILS % (AUTO) 1.3 % (0.0-2.0); EOSINOPHILS % (AUTO) 15.9 % (0.0-4.0); HEMATOCRIT 39.5 % (36-52); HEMOGLOBIN 12.7 g/dL (12.0-18.0); LYMPHOCYTES % (AUTO) 27.7 % (20.5-51.1); MEAN CORPUSCULAR HEMOGLOBIN 29 pg (27-31); MEAN CORPUSCULAR HGB CONC 32 g/dL (33-37); MEAN CORPUSCULAR VOLUME 88.9 fL (80-94); NEUTROPHILS % (AUTO) 47.1 % (42.2-75.2); PLATELET COUNT (AUTO) 139 K/uL (140-450); RED BLOOD CELL COUNT(AUTO) 4.44 MIL/uL (4.20-6.10); WHITE BLOOD COUNT (AUTO) 5.3 K/uL (4.8-10.8)
[2017-12-24 20:15] LABS: PROTHROMBIN TIME 9.9 secs (10.8-13.4)
[2017-12-24 20:20] LABS: ALBUMIN 3.2 g/dL (3.4-5.0); ANION GAP 7.7 (8-16); CARBON DIOXIDE 32.1 mmol/L (21-32); CREATININE 1.7 mg/dL (0.7-1.3); TOTAL BILIRUBIN 0.5 mg/dL (0.0-1.0)
[2017-12-24 20:29] LABS: POTASSIUM 2.8 mmol/L (3.5-5.1)
--- NOTE | 2017-12-24 23:15 | NUR ---
PT RESTING IN BED, VITALS STABLE
--- NOTE | 2017-12-24 23:20 | NUR ---
Note hinaone in EDM - 12/24/17 at 2332 by MED Patient discharged with v/s stable. Written and verbal after care instructions given and explained. Patient alert, oriented and verbalized understanding of instructions. Ambulatory with steady gait. All questions addressed prior to discharge. ID band removed. Patient advised to follow up with PMD. Rx of Motrin and Zofran given. Patient educated on indication of medication including possible reaction and side effects. Opportunity to ask questions provided and answered.
--- NOTE | 2017-12-25 01:25 | NUR ---
PATIENT EXPRESSED WISH TO STAY AND BE REEVALUATED. ER MD SPOKE WITH PCP. OK TO PRIETO.
[2017-12-25 01:30] VITALS: BP 119/75
--- NOTE | 2017-12-25 01:30 | NUR ---
Patient discharged with v/s stable. Written and verbal after care instructions given and explained. Patient verbalized understanding. Ambulance Transport with to care home. All questions addressed prior to discharge. Advised to follow up with PMD.
== END 2017-12-25 01:30 | disposition home or self-care (01) ==
LOC: MED 18:04
DX: I82.B12 Acute embolism and thrombosis of left subclavian vein (principal); E11.22 Type 2 diabetes mellitus with diabetic chronic kidney disease; I12.0 Hypertensive chronic kidney disease with stage 5 chronic kidney disease or end stage renal disease; N18.6 End stage renal disease; Z79.4 Long term (current) use of insulin; Z79.899 Other long term (current) drug therapy; Z99.2 Dependence on renal dialysis
CPT/HCPCS: 36415; 71045; 80053; 83880; 84484; 85025; 85610; 85730; 93005; 93971; 99285; Q0092

== ENCOUNTER 2018-06-05 10:59 | Inpatient (IN) | payer MEDICAID ==
[~2018-06-05] VITALS: Ht 167.6 cm; Wt 68.0 kg
--- NOTE | 2018-06-05 11:03 | NUR ---
PT BIBA BLS TO BED 7
[2018-06-05 11:05] VITALS: BP 118/75
--- NOTE | 2018-06-05 11:29 | NUR ---
SENT FROM [facility]. FOR CLOGGED AND LEAKING SUPRA PUBIC CATH. PER STAFF, NOTED TODAY. HX: ESRD,DIALYSIS T-TH-SAT.,HIGH CHOL.,COLOSTOMY,FATTY LIVER,DYSPHAGIA,DM . DENIES N/V/D; SKIN IS PINK/WARM/DRY; HR EVEN AND REGULAR; PT DENIES ANY FEVER, CP, SOB, OR COUGH AT THIS TIME; PATIENT STATES PAIN OF 7/10 AT THIS TIME; VSS; PATIENT POSITIONED FOR COMFORT; HOB ELEVATED; BEDRAILS UP X2; BED DOWN. ER MD MADE AWARE OF PT STATUS.
--- NOTE | 2018-06-05 12:59 | NUR ---
Note jhoana in EDM - 06/05/18 at 1431 by POLY attempted to remove suprapubic cath, withdraw 22 cc yellowish fluid from ballon port. maximum resistance unable to pull out. md notified. refilled ballon port with 10 mls saline, collecting bag changed. pt verbalized no pain.
--- NOTE | 2018-06-05 13:03 | NUR ---
XRAY AT BEDSIDE
[2018-06-05 13:30] LABS: BASOPHILS % (AUTO) 0.6 % (0.0-2.0); EOSINOPHILS # (AUTO) 1.2 K/uL (0-0.4); EOSINOPHILS % (AUTO) 16.3 % (0.0-4.0); HEMATOCRIT 35.1 % (36-52); HEMOGLOBIN 11.3 g/dL (12.0-18.0); LYMPHOCYTES # (AUTO) 1.5 K/uL (2.0-11.5); LYMPHOCYTES % (AUTO) 20.6 % (20.5-51.1); MEAN CORPUSCULAR HEMOGLOBIN 28 pg (27-31); MEAN CORPUSCULAR HGB CONC 32 g/dL (33-37); MEAN CORPUSCULAR VOLUME 86.9 fL (80-94); MONOCYTES # (AUTO) 0.5 K/uL (0.8-1.0); MONOCYTES % (AUTO) 7.3 % (1.7-9.3); NEUTROPHILS # (AUTO) 4.1 K/uL (1.8-7.7); NEUTROPHILS % (AUTO) 55.2 % (42.2-75.2); PLATELET COUNT (AUTO) 95 K/uL (140-450); RED BLOOD CELL COUNT(AUTO) 4.04 MIL/uL (4.20-6.10); RED CELL DISTRIBUTION WIDTH 12.9 % (11.6-13.7); WHITE BLOOD COUNT (AUTO) 7.5 K/uL (4.8-10.8)
[2018-06-05 13:49] LABS: ALBUMIN 3.7 g/dL (3.4-5.0); ANION GAP 12.1 (8-16); CARBON DIOXIDE 27.9 mmol/L (21-32); CREATININE 3.7 mg/dL (0.7-1.3); TOTAL BILIRUBIN 0.4 mg/dL (0.0-1.0)
[2018-06-05] MEDS ORDERED: DEXT 5% /NACL 0.9% 1,000 ML IV SCH (14:23)
[2018-06-05] MEDS ORDERED: LORazepam 2 MG/ML VIAL IM/IVP PRN (14:25)
[2018-06-05] MEDS ORDERED: ACETAMINOPHEN 325 MG TAB PO PRN (14:25)
[2018-06-05] MEDS ORDERED: ZOLPIDEM 5 MG TAB PO PRN (14:25)
[2018-06-05] MEDS ORDERED: ONDANSETRON 4 MG/2 ML VIAL IM/IVP PRN (14:25)
[2018-06-05] MEDS ORDERED: DOCUSATE SODIUM 100 MG GELCAP PO PRN (14:25)
[2018-06-05 14:58] LABS: CHOL/HDL RATIO 2.2 (1-4.5); MAGNESIUM 2.2 mg/dL (1.8-2.4); PHOSPHORUS 4.8 mg/dL (2.5-4.9); THYROID STIMULATING HORMONE 1.07 uIU/mL (0.34-3.74)
--- NOTE | 2018-06-05 14:58 | NUR ---
PT TAKEN TO TELE FLOOR BY RN ISHMAEL AND EMT DENIZ
--- NOTE | 2018-06-05 15:10 | NUR ---
PATIENT ADMITTED FROM ED. C/O SUPRAPUBIC CATH MALFUNCTION. PATIENT IS ALERT AND ORIENTED TO SELF AND PLACE. FOLLOWS COMMANDS, PERIODS OF CONFUSION. PATIENT ASSISTED IN CHANGING OF POSITIONED, NO ACUTE DISTRESS NOTED. COLOSTOMY NOTED LUQ, SMALL SOFT STOOL NOTED. PATIENT HAS SUPRAPUBIC CATH TO BAG, NO URINE OUTPUT NOTED. DR. RAHMAN CONSULTED. PATIENT HAS MULTIPLE WOUNDS, SKIN KEPT CLEAN AND DRY. IV SITE PATENT AND INTACT. PATIENT ORIENTED TO HOSPITAL ENVIRONMENT, VERBALIZED UNDERSTANDING.
--- NOTE | 2018-06-05 15:13 | NUR ---
pt transferred to tele 117, report given to caridad. pt awake,alert. able to make needs known.
[2018-06-05 15:39] LABS: PROTHROMBIN TIME 9.9 secs (10.8-13.4)
--- NOTE | 2018-06-05 16:20 | NUR ---
PATIENT SEEN BY DR. JOHNSON AT BEDSIDE. PATIENT TO HAVE HEMODIALYSIS TODAY, DIALYSIS CENTER NOTIFIED.
[2018-06-05] MEDS ORDERED: NON-FORMULARY ITEM (Lactulose 30 ML) PO PRN (16:30)
[2018-06-05] MEDS ORDERED: LORazepam 1 MG TAB PO PRN (16:30)
[2018-06-05] MEDS ORDERED: FERR325E14 PO (16:41)
[2018-06-05] MEDS ORDERED: DEXTROSE 50% 50 ML SYR IVP PRN (16:45)
[2018-06-05] MEDS: CALCIUM ACETATE 667 MG TAB PO SCH (17:00)
[2018-06-05] MEDS: HYDROCORTISONE 1% OINT 30 GM TUBE TP SCH (17:00)
--- NOTE | 2018-06-05 17:00 | NUR ---
SUPRAPUBIC CATH REPLACED BY DR. CHURCH AT BEDSIDE. IRRIGATED AT BEDSIDE BY MD, PURULENT DRAINAGE TO CLEAR BLOOD TINGED WITH CLOTS NOTED. PATIENT STARTED ON HD AT BEDSIDE. NO ACUTE DISTRESS NOTED.
--- NOTE | 2018-06-05 19:29 | NUR ---
SBAR REPORT GIVEN TO NIGHT RN AT PT BEDSIDE. PATIENT CONTINUED ON HD. NO ACUTE DISTRESS NOTED.
--- NOTE | 2018-06-05 19:30 | NUR ---
RECEIVED FROM AM RN IN BED WITH HEMODIALYSIS ON GOING. AWAKE AND ALERT. ABLE TO VERBALIZE NEEDS WELL IN [place] AND MAC[place]ONIAN. URINE BAG NOTED WITH PALE RED IN COLOR URINE RT PROCEDURE WAS DONE THIS P.M. FOR REPAIR OF LEAKING SUPRAPUBIC CATHETER. TELEMETRY MONITORING. CARE PLANS FOR THE NIGHT DISCUSSED WITH HIM AND CALL LIGHT PLACED BESIDE HIM IN BED FOR EASY ACCESS.
[2018-06-05 19:32] VITALS: BP 100/52
[2018-06-05] MEDS ORDERED: Z-GUARD PASTE TP PRN (19:40)
[2018-06-05 20:07] LABS: APPEARANCE,URINE TURBID (CLEAR); COLOR,URINE SLIGHT BLOODY (YELLOW)
[2018-06-05 20:08] LABS: BILIRUBIN,URINE NEGATIVE (NEGATIVE); BLOOD, URINE 4+ (NEGATIVE); LEUKOCYTE ESTERASE ,URINE 4+ (NEGATIVE); NITRITE, URINE POSITIVE (NEGATIVE); UGLUCOSE NEGATIVE (NEGATIVE)
[2018-06-05 20:09] LABS: RBC,URINE 80-100 /HPF (0-5); WBC,URINE TOO MANY TO COUNT /HPF (0-5)
[2018-06-05 20:29] VITALS: BP 103/70
[2018-06-05] MEDS: ASCORBIC ACID 500 MG TAB PO SCH (20:41)
[2018-06-05] MEDS: SENNA 8.6 MG TAB PO SCH (20:41)
[2018-06-05] MEDS: BLOOD GLUCOSE MONITORING 1 DEV DEV FS SCH (20:41)
[2018-06-05] MEDS: INSULIN LISPRO SLIDING SCALE 100 UNITS/ML VIAL SUBQ PRN (20:42)
[2018-06-05] MEDS: HYDROcodone/APAP 5/325 MG 1 TAB TAB PO PRN (20:42)
[2018-06-05] MEDS: INSULIN LISPRO 100 UNITS/ML VIAL SUBQ SCH (21:00)
[2018-06-05] MEDS: PETROLATUM WHITE 30 GM TUBE TP SCH (21:14)
--- NOTE | 2018-06-05 21:15 | NUR ---
BLOOD SUGAR CHECK 185 PER FINGERSTICK AND ADMINISTERED 2 UNITS OF HUMALOG PER SLIDING SCALE.
--- NOTE | 2018-06-05 22:24 | NUR ---
PT. SLEEPING AT THIS TIME. HEMODIALYSIS DONE AT 2145 AND TAKEN OUT WAS 1.2 LITER. NO COMPLAINTS DONE. ON TELEMETRY MONITORING.
--- NOTE | 2018-06-05 23:00 | NUR ---
PT. CHECKED AND SLEEPING WELL. NO RESTLESSNESS. CALL LIGHT WITH IN REACH.
[2018-06-06 01:03] VITALS: BP 96/60
--- NOTE | 2018-06-06 01:04 | NUR ---
AWAKE AT THIS TIME. PT. NEEDS MET. NO COMPLAINTS OF PAIN AT THIS TIME. TELEMETRY MONITORING. SENIOR SYSTEMS ARCHITECT PERSONAL HYGIENE RENDERED BY CNAS. TURNED TO SIDES Q 2H. PILLOW SUPPORT PROVIDED TO PRESSURE AREAS.
--- NOTE | 2018-06-06 01:30 | NUR ---
INFORMED RESIDENT MD RE REPETITIVE ORDER OF HUMALOG INSULIN ADMINISTRATION. INFORMED RESIDENT THAT THERE IS AN AUTOMATIC HUMALOG INSULIN SLIDING SCALE . ADMINISTERED INSULIN FOLLOWING SLIDING SCALE . "OK" NO FURTHER ORDERS GIVEN.
--- NOTE | 2018-06-06 03:00 | NUR ---
SLEEPING. CALL LIGHT WITH IN REACH.
--- NOTE | 2018-06-06 04:17 | NUR ---
AM PERSONAL HYGIENE RENDERED BY CNAS. TURNED Q 2H.
[2018-06-06 04:18] VITALS: BP 98/66
[2018-06-06] MEDS: BLOOD GLUCOSE MONITORING 1 DEV DEV FS SCH ×4 (06:20→21:00)
[2018-06-06] MEDS: INSULIN LISPRO 100 UNITS/ML VIAL SUBQ SCH ×4 (06:21→21:00)
--- NOTE | 2018-06-06 06:22 | NUR ---
BLOOD SUGAR CHECK PER FINGERSTICK DONE 111. NO HUMALOG COVERAGE GIVEN. AWAKE AND ALERT. ABLE TO VERBALIZE NEEDS WELL IN [place] AND [place].
--- NOTE | 2018-06-06 06:36 | NUR ---
PATIENT HAS BEEN SCREENED AND CATEGORIZED HIGH NUTRITION RISK. PATIENT WILL BE SEEN WITHIN 1-2 DAYS OF ADMISSION. 06/06/18-06/07/18 EDMUND SHINE MS, RDN
[2018-06-06 06:55] LABS: BASOPHILS # (AUTO) 0.1 K/uL (0.00-0.22); HEMATOCRIT 34.4 % (36-52); HEMOGLOBIN 11.2 g/dL (12.0-18.0); LYMPHOCYTES # (AUTO) 1.6 K/uL (2.0-11.5); MEAN CORPUSCULAR HEMOGLOBIN 28 pg (27-31); MEAN CORPUSCULAR HGB CONC 33 g/dL (33-37); MEAN CORPUSCULAR VOLUME 86.1 fL (80-94); MONOCYTES # (AUTO) 0.5 K/uL (0.8-1.0); MONOCYTES % (AUTO) 8.1 % (1.7-9.3); NEUTROPHILS # (AUTO) 3.4 K/uL (1.8-7.7); PLATELET COUNT (AUTO) 90 K/uL (140-450); RED CELL DISTRIBUTION WIDTH 12.7 % (11.6-13.7); WHITE BLOOD COUNT (AUTO) 6.6 K/uL (4.8-10.8)
[2018-06-06 07:12] LABS: ANION GAP 12.3 (8-16); CARBON DIOXIDE 29.4 mmol/L (21-32); CREATININE 2.4 mg/dL (0.7-1.3); POTASSIUM 3.7 mmol/L (3.5-5.1)
--- NOTE | 2018-06-06 07:27 | NUR ---
ENDORSED TO THE NEXT RN FOR CONTINUITY OF CARE. AWAKE AND ALERT. GOOD AFFECT. SMILING.
--- NOTE | 2018-06-06 07:30 | NUR ---
RECEIVED PT FROM HAND SEWER SHOES NURSE, PT IS AWAKE AND LYING ON THE BED WITH SIDE RAILS UP AND PERLA LIGHT WITHIN REACH, PT HAS AN IV LINE ON THE LEFT HAND G.24 ON SALINE LOCK, INTACT, PT DENIES PAIN AND NO SOB NOTED. NO SIGN OF DISTRESS NOTED, WILL CONTINUE TO MONITOR PT.
[2018-06-06 07:36] LABS: MAGNESIUM 1.9 mg/dL (1.8-2.4); PHOSPHORUS 4.1 mg/dL (2.5-4.9)
[2018-06-06 08:00] VITALS: BP 98/65
[2018-06-06 08:22] LABS: EOSINOPHILS % (AUTO) 15.6 % (0.0-4.0); LYMPHOCYTES % (AUTO) 24.3 % (20.5-51.1)
--- NOTE | 2018-06-06 08:30 | NUR ---
PT IS AWAKE AND VITAL SIGNS TAKEN AND IS WITHIN NORMAL LIMIT, NO SIGN OF DISTRESS NOTED AND WILL MONITOR, PT.
[2018-06-06] MEDS ORDERED: NON-FORMULARY ITEM (Lactobacillus Acidophilus (Acidophilus) 1 EACH) PO SCH (09:00)
[2018-06-06] MEDS ORDERED: MIDODRINE 5 MG TAB PO SCH (09:00)
[2018-06-06] MEDS: Z-GUARD PASTE TP SCH ×2 (09:00→21:36)
[2018-06-06] MEDS: LACTOBACILLUS RHAMNOSUS GG 1 EACH CAP PO SCH (09:38)
[2018-06-06] MEDS: SENNA 8.6 MG TAB PO SCH ×2 (09:39→21:35)
[2018-06-06] MEDS: CALCIUM ACETATE 667 MG TAB PO SCH ×3 (09:39→18:24)
[2018-06-06] MEDS: DOCUSATE SODIUM 100 MG GELCAP PO SCH (09:40)
[2018-06-06] MEDS: ARIPiprazole 10 MG TAB PO SCH (09:40)
[2018-06-06] MEDS: FERROUS SULFATE 325 MG TABEC PO SCH (09:40)
[2018-06-06] MEDS: VIT-B COMP/VIT-C/FOLIC ACID 1 TAB PO SCH (09:41)
[2018-06-06] MEDS: ATORVASTATIN 20 MG TAB PO SCH (09:41)
[2018-06-06] MEDS: ASCORBIC ACID 500 MG TAB PO SCH ×2 (09:41→21:35)
--- NOTE | 2018-06-06 09:41 | NUR ---
PT IS AWAKE AND ORAL MEDICATIONS WERE GIVEN AND PT TOLERATED IT. NO SIGN OF DISTRESS NOTED AND WILL MONITOR PT.
[2018-06-06] MEDS: HYDROcodone/APAP 5/325 MG 1 TAB TAB PO PRN (09:53)
--- NOTE | 2018-06-06 10:05 | NUR ---
PT IS AWAKE AND IRRIGATED THE CATHETER, IRRIGATED WITH 100ML OF STERILE WATER.
[2018-06-06] MEDS: HYDROCORTISONE 1% OINT 30 GM TUBE TP SCH ×3 (11:51→18:26)
[2018-06-06] MEDS: INSULIN LISPRO SLIDING SCALE 100 UNITS/ML VIAL SUBQ PRN (11:56)
[2018-06-06 12:00] VITALS: BP 107/50
--- NOTE | 2018-06-06 14:20 | NUR ---
PT IS AWAKE AND CATHETER WAS IRRIGATED WITH 150 ML OF STERILE WATER.
[2018-06-06 16:00] VITALS: BP 103/50
--- NOTE | 2018-06-06 16:30 | NUR ---
PT IS AWAKE AND LYING ON THE BED, VITAL SIGNS TAKEN AND IS WITHIN NORMAL LIMIT. BLOOD GLUCOSE CHECKED AND RESULT IS 131 AND NO INSULIN COVERAGE NEEDED. WILL MONITOR PT.
--- NOTE | 2018-06-06 18:24 | NUR ---
PT IS AWAKE AND ORAL MEDICATION WAS GIVEN AND PT TOLERATED IT, CATHETER WAS IRRIGATED AGAIN WITH 100ML WATER. NO SIGN OF DISTRESS NOTED. WILL MONITOR PT.
--- NOTE | 2018-06-06 18:26 | NUR ---
PT IS AWAKE AND ORAL MEDICATION GIVEN, PT TOLERATED IT AND NO SIGN OF DISTRESS NOTED. WILL CONTINUE TO MONITOR PT.
--- NOTE | 2018-06-06 19:30 | NUR ---
ENDORSED PT TO CASE FOLDER NURSE, LANRE FOR CONTINUITY OF CARE, PT IS STABLE AT THIS TIME.
--- NOTE | 2018-06-06 19:33 | NUR ---
RECEIVED PT FROM CHEKO RN PT DANISH SPEAKER AAOX2 COMPLAINTS OF GENERALIZED WEAKNESS COLOSTOMY BAG EMPY PASTE STOOL SUPRAPUBIC CATHHETER IRRIGATED DRAINING REDISH COLOR URINE REPOAITIONED INITIAL ASSESSMENT DONE
[2018-06-06 20:00] VITALS: BP 104/60
--- NOTE | 2018-06-06 21:30 | NUR ---
BLOOD SUGAR TEST 133 NOT COVERAGE
[2018-06-07] VITALS: BP 90/50
--- NOTE | 2018-06-07 | NUR ---
PT RESTING NOT DISTRESS NOTED ON TELMETRY SR BLADDER IRRIGATION DONE PINK COLOR DRAINING URINE
--- NOTE | 2018-06-07 03:00 | NUR ---
PT HAS BEEN MONITORING CLOSE REPOSITIONED Q2H ON TELMETRY SR AND PT HAS BEEN FLUSHING SUPRAPUBIC CATHETER WITHNS ORDER AND URINE GETTING PINK
[2018-06-07 04:00] VITALS: BP 106/65
--- NOTE | 2018-06-07 05:24 | NUR ---
SPONGE BATH GIVEN LINEN CHANGED ON TELEMETRY SR FLUSHING SUPRAPUBIC CATHETER GETTING URINE CLEAR
[2018-06-07] MEDS: INSULIN LISPRO 100 UNITS/ML VIAL SUBQ SCH ×4 (06:45→21:00)
[2018-06-07] MEDS: BLOOD GLUCOSE MONITORING 1 DEV DEV FS SCH ×4 (06:45→20:56)
--- NOTE | 2018-06-07 06:48 | NUR ---
BLOOD SUGAR TEST 106 , PT REMAIN STABLE NOT DISTRESS NOTED ON TELEMETRY SR SUPRAPUBIC CATHETER FLUSHING WITH NS AND DRAINING GETTING CLEAR
[2018-06-07 07:08] LABS: CARBON DIOXIDE 27.6 mmol/L (21-32); POTASSIUM 3.9 mmol/L (3.5-5.1)
[2018-06-07 07:09] LABS: ANION GAP 14.3 (8-16); CREATININE 3.1 mg/dL (0.7-1.3)
[2018-06-07 07:12] LABS: MAGNESIUM 1.7 mg/dL (1.8-2.4); PHOSPHORUS 4.3 mg/dL (2.5-4.9)
[2018-06-07 07:18] LABS: BASOPHILS % (AUTO) 0.5 % (0.0-2.0); EOSINOPHILS # (AUTO) 1.1 K/uL (0-0.4); EOSINOPHILS % (AUTO) 13.2 % (0.0-4.0); HEMATOCRIT 32.8 % (36-52); LYMPHOCYTES # (AUTO) 1.5 K/uL (2.0-11.5); LYMPHOCYTES % (AUTO) 18.1 % (20.5-51.1); MEAN CORPUSCULAR HEMOGLOBIN 28 pg (27-31); MEAN CORPUSCULAR HGB CONC 34 g/dL (33-37); MEAN CORPUSCULAR VOLUME 84.9 fL (80-94); MONOCYTES # (AUTO) 0.7 K/uL (0.8-1.0); MONOCYTES % (AUTO) 8.1 % (1.7-9.3); NEUTROPHILS # (AUTO) 4.9 K/uL (1.8-7.7); NEUTROPHILS % (AUTO) 60.1 % (42.2-75.2); PLATELET COUNT (AUTO) 96 K/uL (140-450); RED BLOOD CELL COUNT(AUTO) 3.87 MIL/uL (4.20-6.10); RED CELL DISTRIBUTION WIDTH 12.5 % (11.6-13.7); WHITE BLOOD COUNT (AUTO) 8.2 K/uL (4.8-10.8)
[2018-06-07 08:00] VITALS: BP 108/64
[2018-06-07] MEDS: HYDROCORTISONE 1% OINT 30 GM TUBE TP SCH ×3 (09:00→17:00)
[2018-06-07] MEDS: Z-GUARD PASTE TP SCH ×2 (09:00→13:00)
[2018-06-07] MEDS: ARIPiprazole 10 MG TAB PO SCH (09:08)
[2018-06-07] MEDS: CALCIUM ACETATE 667 MG TAB PO SCH ×3 (09:08→18:04)
[2018-06-07] MEDS: SENNA 8.6 MG TAB PO SCH ×2 (09:08→20:54)
[2018-06-07] MEDS: ATORVASTATIN 20 MG TAB PO SCH (09:08)
[2018-06-07] MEDS: LACTOBACILLUS RHAMNOSUS GG 1 EACH CAP PO SCH (09:08)
[2018-06-07] MEDS: ASCORBIC ACID 500 MG TAB PO SCH ×2 (09:08→20:54)
[2018-06-07] MEDS: DOCUSATE SODIUM 100 MG GELCAP PO SCH (09:09)
[2018-06-07] MEDS: FERROUS SULFATE 325 MG TABEC PO SCH (09:09)
[2018-06-07] MEDS: VIT-B COMP/VIT-C/FOLIC ACID 1 TAB PO SCH (09:09)
--- NOTE | 2018-06-07 09:12 | NUR ---
ADMINISTERED MEDS TO PT ORDERED. PT TRANSFERRED TO DIFFERENT BED BED WAS NOT WORKING. PT WITH TAX COMPLIANCE MANAGER, EATING HIS BREAKFAST. PT TOLERATED WELL. NO SIGN OF DISTRESS NOTED. ALL SAFETY MEASURE IN PLACE. WILL CONTINUE TO MONITOR PT.
[2018-06-07] MEDS ORDERED: MAGNESIUM OXIDE 400 MG TAB PO SCH (11:00)
[2018-06-07 12:00] VITALS: BP 115/76
--- NOTE | 2018-06-07 12:27 | NUR ---
WOUND CARE EVALUATION NOTE: REASON FOR EVALUATION: SACRALCOCCYX WOUNDS SKIN ASSESSMENT DONE WITH THIS 52 Y/O MALE [facility] WITH INITIAL DX LEAKING SUPRAPUBIC CATH.PAST MEDICAL HX: ESRD ON HD, SUPRAPUBIC CATH, COLOSTOMY, CVA, DVT, HTN, HLD, PAD AND SCHIZOAFFECTIVE DISORDER.PT IS AWAKE. SKIN IS WARM AND DRY, BLE FEW HAIR GROWTH, NO EDEMA. DORSAL PEDAL PULSES PRESENT AND NORMAL. CAPILLARY REFILLED < 2 SEC. X 10 TOES. BILATERAL HEELS THIN CALLUSES. PLAN OF CARE DISCUSSED WITH PRIMARY RN. DR. HUTSON AT BED SIDE, TREATMENT PLAN DISCUSSED. INTEGUMENTARY: -LLQ ABDOMEN COLOSTOMY FUNCTIONING WITH SMALL AMOUNT SOFT BROWN STOOL OUTPUT. -SUPRAPUBIC SITE, STOMA RED AND MOIST, NO ODOR, BELLE-STOMA SKIN INTACT. CATHETER IN PATENT FUNCTIONING WITH HEMATURIA -PRESSURE INJURIES STAGE 2 TO SACRALCOCCYX 2X2X0.1 CM WOUND BED RED, MOIST, NO ODOR, BELLE-WOUND SKIN DENUDED SURROUNDING REDNESS MERGED WITH L/B BUTTOCKS IAD -INCONTINENT ASSOCIATE DERMATITIS (IAD) TO: REDNESS B/L BUTTOCKS WITH MULTIPLE SKIN EROSIONS WITH LARGEST TO RIGHT BUTTOCK 3X4XX0.1 CM, WOUND BED ARE RED AND MOIST, NO ODOR, PERIWOUND SKIN DENUDED 7X9CM -DRY SCALY SKIN TO LOWER EXTREMITIES, SKIN INTACT. RECOMMENDATIONS: -CLEANSE SACRALCOCCYX AND R/L BUTTOCKS WITH SOAP AND WATER PAT DRY, APPLY Z-GUARD AND COVER WITH OPTIFORM BIDWC AND PRN IF SOILING -APPLY BODY LOTION TO BLE DAILY -OFFLOAD BILATERAL HEELS BY PLACING PILLOWS UNDER CALVES UNLESS OTHERWISE CONTRAINDICATED -PRESSURE REDISTRIBUTION SURFACE THERAPY -TURN AND REPOSITION Q2H, OFFLOAD SACRALCOCCYX AND BUTTOCKS BY TURNING RIGHT AND LEFT -CONTINUE TO FOLLOW RD RECOMMENDATIONS ALL ABOVE RECOMMENDATIONS DISCUSSED WITH PRIMARY RN. WILL FOLLOW UP PT Q7-10 DAYS. PLEASE CONTACT WOUND CARE NURSE FOR ANY QUESTION AND CHANGE OF WOUND CONDITION.
--- NOTE | 2018-06-07 13:00 | NUR ---
CHECKED ON PT. APPLIED Z-GUARD AND CORTISONE TO PT ORDERED. REPOSITIONED PT. NO LEAKAGE FROM CATHETER. PT DENIES ANY DISTRESS. CALL LIGHT WITHIN PT REACH. WILL CONTINUE TO MONITOR PT.
--- NOTE | 2018-06-07 14:40 | NUR ---
06/07/18 RD INITIAL ASSESSMENT COMPLETED PLEASE REFER TO NUTRITION ASSESSMENT UNDER CARE ACTIVITY FOR ESTIMATED NUTRITIONAL NEEDS. RD RECOMMENDATIONS: 1. CONTINUE CCHO 60 GM & RENAL DIET WITH NECTAR THICK LIQUIDS TOLERATED 2. RECOMMEND NEPRO BID IF PO INTAKE <50% 3. CONTINUE NEPHRO-BLAINE AND VITAMIN C FOR WOUND HEALING 4. RD OFFERED NUTRITION EDUCATION FOR DIABETES AND RENAL DIET, PATIENT DECLINED. ATTEMPT EDUCATION ON FOLLOW UP VISIT. 5. RD TO FOLLOW-UP 3-5 DAYS, MODERATE RISK AMARIS ADAMES RD
--- NOTE | 2018-06-07 15:30 | NUR ---
ADMINISTERED ROCEPHIN ORDERED. TOLERATED WELL. NO SIGN OF DISTRESS NOTED. CALL LIGHT WITHIN REACH. WILL CONTINUE TO MONITOR PT.
[2018-06-07 16:00] VITALS: BP 105/58
--- NOTE | 2018-06-07 17:30 | NUR ---
CHECKED ON PT. ADMINISTERED HUMOLOG ORDERED IN EMAR . WILL PASS INFORMATION TO PM NURSE. NO SIGN OF DISTRESS NOTED. CALL LIGHT WITHIN REACH. HELPED PT TO CHANGE THE POSITION. WILL CONTINUE TO MONITOR PT.
--- NOTE | 2018-06-07 19:10 | NUR ---
ENDORSED PT TO PM NURSE AT BED-SIDE. PT IN STABLE CONDITION.
--- NOTE | 2018-06-07 19:11 | NUR ---
RECEIVED BEDSIDE REPORT FROM DAY SHIFT NURSE LIAM RN, PT STABLE, NO DISTRESS NOTED, IV TO L HAND 24 G, PATENT, INTACT, SL, PT ON ROOM AIR, NO SOB, PT HAS NO C/O PAIN AT THIS MOMENT, SUPRAPUBIC CATH IN PLACE DRAINING URINE, COLOSTOMY BAG IN PLACE, INA CATH IN PLACE TO THE R UPPER CHEST, INITIAL ASSESSMENT DONE, ALL SAFETY PRECAUTION MET, CALL LIGHT WITHIN REACH, WILL CONTINUE TO MONITOR.
[2018-06-07 20:00] VITALS: BP 113/64
[2018-06-07] MEDS: PETROLATUM WHITE 30 GM TUBE TP SCH (20:54)
[2018-06-07] MEDS: MORPHINE SULFATE 2 MG/ML SYR IVP PRN (21:00)
--- NOTE | 2018-06-07 21:00 | NUR ---
DUE MEDICATION ADMINISTERED, PT STATED HAVING GENERALIZED PAIN ON SEVERAL PARTS OF HIS BODY 10/13, PAIN MEDICATION PER DR ORDERED ADMINISTERED, PT TOLERATED WELL, NO DISTRESS NOTED, PT BLOOD SUGAR 94, HUMALOG ORDERED 4 UNITS HELD, DR. PERERA NOTIFIED. PT RESTING, NO DISTRESS NOTED, CALL LIGHT WITHIN REACH, WILL CONTINUE TO MONITOR.
[2018-06-08] VITALS: BP 111/67
[2018-06-08] MEDS: MORPHINE SULFATE 2 MG/ML SYR IVP PRN (00:18)
--- NOTE | 2018-06-08 00:18 | NUR ---
CHECKED ON PT, V/S TAKEN, WNL, PT STATED HAVING PAIN 9/10, PAIN MEDICATION PER DR ORDER ADMINISTERED, PT TOLERATED WELL, CALL LIGHT WITHIN REACH, WILL CONTINUE TO MONITOR.
[2018-06-08] MEDS: Z-GUARD PASTE TP SCH ×2 (00:30→13:00)
[2018-06-08 04:00] VITALS: BP 109/64
--- NOTE | 2018-06-08 04:11 | NUR ---
CHECKED ON PT, PT SLEEPING, NO DISTRESS NOTED, V/S TAKEN, WNL, CALL LIGHT WITHIN REACH, WILL CONTINUE TO MONITOR.
[2018-06-08] MEDS: BLOOD GLUCOSE MONITORING 1 DEV DEV FS SCH ×4 (05:55→20:53)
[2018-06-08] MEDS: INSULIN LISPRO 100 UNITS/ML VIAL SUBQ SCH ×4 (06:36→20:53)
[2018-06-08 07:15] LABS: BASOPHILS # (AUTO) 0.1 K/uL (0.00-0.22); BASOPHILS % (AUTO) 0.7 % (0.0-2.0); EOSINOPHILS # (AUTO) 1.1 K/uL (0-0.4); EOSINOPHILS % (AUTO) 16.4 % (0.0-4.0); HEMATOCRIT 33.8 % (36-52); HEMOGLOBIN 10.9 g/dL (12.0-18.0); LYMPHOCYTES # (AUTO) 1.5 K/uL (2.0-11.5); LYMPHOCYTES % (AUTO) 21.7 % (20.5-51.1); MEAN CORPUSCULAR HEMOGLOBIN 28 pg (27-31); MEAN CORPUSCULAR HGB CONC 32 g/dL (33-37); MEAN CORPUSCULAR VOLUME 86.6 fL (80-94); MONOCYTES # (AUTO) 0.7 K/uL (0.8-1.0); MONOCYTES % (AUTO) 10.9 % (1.7-9.3); NEUTROPHILS # (AUTO) 3.4 K/uL (1.8-7.7); NEUTROPHILS % (AUTO) 50.3 % (42.2-75.2); PLATELET COUNT (AUTO) 94 K/uL (140-450); RED CELL DISTRIBUTION WIDTH 12.3 % (11.6-13.7); WHITE BLOOD COUNT (AUTO) 6.8 K/uL (4.8-10.8)
--- NOTE | 2018-06-08 07:20 | NUR ---
ENDORSED PT TO DAY SHIFT NURSE SITAL RN, FOR CONTINUOUS OF CARE. PT STABLE, NO DISTRESS NOTED, CALL LIGHT WITHIN REACH.
[2018-06-08 07:27] LABS: ANION GAP 11.5 (8-16); CARBON DIOXIDE 28.2 mmol/L (21-32); CREATININE 3.2 mg/dL (0.7-1.3); POTASSIUM 3.7 mmol/L (3.5-5.1)
[2018-06-08 07:57] VITALS: BP 102/57
[2018-06-08] MEDS ORDERED: LACTOBACILLUS RHAMNOSUS GG 1 EACH CAP PO SCH (09:00)
[2018-06-08] MEDS ORDERED: MIDODRINE 5 MG TAB PO SCH (09:00)
[2018-06-08] MEDS: HYDROCORTISONE 1% OINT 30 GM TUBE TP SCH ×3 (09:00→17:21)
[2018-06-08] MEDS ORDERED: ALBUMIN HUMAN 25% 50 ML IV SCH (09:32)
[2018-06-08 10:00] LABS: FERRITIN 724 ng/mL (30 - 400); TRANSFERRIN 141 mg/dL (200 - 370)
[2018-06-08] MEDS: LACTOBACILLUS RHAMNOSUS GG 1 EACH CAP PO SCH (10:23)
[2018-06-08] MEDS: FERROUS SULFATE 325 MG TABEC PO SCH (10:23)
[2018-06-08] MEDS: DOCUSATE SODIUM 100 MG GELCAP PO SCH (10:23)
[2018-06-08] MEDS: CALCIUM ACETATE 667 MG TAB PO SCH ×3 (10:23→17:17)
[2018-06-08] MEDS: ARIPiprazole 10 MG TAB PO SCH (10:24)
[2018-06-08] MEDS: SENNA 8.6 MG TAB PO SCH ×2 (10:24→20:51)
[2018-06-08] MEDS: ATORVASTATIN 20 MG TAB PO SCH (10:24)
[2018-06-08] MEDS: ASCORBIC ACID 500 MG TAB PO SCH ×2 (10:24→20:51)
[2018-06-08] MEDS: VIT-B COMP/VIT-C/FOLIC ACID 1 TAB PO SCH (10:25)
--- NOTE | 2018-06-08 10:33 | NUR ---
ADMINISTERED MEDS TO PT ORDERED. ADMINISTERED ALBUMIN.BP MEDS ON HOLD. PT WITH DIALYSIS NURSE. NO SIGN OF DISTRESS NOTED. ALL SAFETY MEASURE IN PLACE. WILL CONTINUE TO MONITOR PT.
--- NOTE | 2018-06-08 12:30 | NUR ---
HD DONE IN PT. TOLERATED WELL. PER HD NURSE, NO OUTPUT IN PT. NO SIGN OF DISTRESS NOTED.
--- NOTE | 2018-06-08 13:00 | NUR ---
CHECKED O PT. SLEEPING AT THIS TIME. REPOSITIONED PT WITH HELP OF HEARING AID MECHANIC. CHANGED DRESSING. NO SIGN OF DISTRESS NOTED. WILL CONTINUE TO MONITOR PT.
[2018-06-08 16:00] VITALS: BP 118/56
--- NOTE | 2018-06-08 17:00 | NUR ---
CHECKED ON PT. ADMINISTERED INSULIN PER COVERAGE ON EMAR. BS 132 AT THIS TIME. ADMINISTERED MEDS ORDERED. TOLERATED WELL . NO SIGN OF DISTRESS NOTED. CALL LIGHT WITHIN PT REACH. REPOSITIONED PT . WILL CONTINUE TO MONITOR PT.
--- NOTE | 2018-06-08 19:20 | NUR ---
ENDORSED PT TO PM NURSE AT BEDSIDE. PT IN STABLE CONDITION.
--- NOTE | 2018-06-08 19:21 | NUR ---
RECEIVED BEDSIDE REPORT FROM DAY SHIFT RN SITAL, PT SLEEPING, IV TO L HAND 24G PATENT, INTACT, SL, PT ON ROOM AIR, NO SOB NOTED, COLOSTOMY BAG INTACT, SUPRAPUBIC CATH IN PLACE DRAINING DARK ALLISON COLORED URINE, INITIAL ASSESSMENT DONE, ALL SAFETY PRECAUTION MET, CALL LIGHT WITHIN REACH, WILL CONTINUE TO MONITOR.
[2018-06-08 20:00] VITALS: BP 113/65
[2018-06-08] MEDS: HYDROcodone/APAP 5/325 MG 1 TAB TAB PO PRN (20:53)
[2018-06-08] MEDS: PETROLATUM WHITE 30 GM TUBE TP SCH (20:54)
--- NOTE | 2018-06-08 20:54 | NUR ---
DUE MEDICATION ADMINISTERED, PT TOLERATED WELL, NO DISTRESS NOTED, CALL LIGHT WITHIN REACH, WILL CONTINUE TO MONITOR.
[2018-06-09] VITALS: BP 107/63
--- NOTE | 2018-06-09 00:10 | NUR ---
CHECKED ON PT, PT SLEEPING, NO DISTRESS NOTED, VS TAKEN WNL, CALL LIGHT WITHIN REACH, WILL CONTINUE TO MONITOR.
--- NOTE | 2018-06-09 01:05 | NUR ---
WOUND CARE GIVEN TO PT, DRESSING CHANGED, PT TOLERATED WELL, NO DISTRESS NOTED, CALL LIGHT WITHIN REACH, WILL CONTINUE TO MONITOR.
[2018-06-09] MEDS: Z-GUARD PASTE TP SCH ×2 (01:14→13:27)
[2018-06-09] MEDS: BLOOD GLUCOSE MONITORING 1 DEV DEV FS SCH ×3 (07:00→16:30)
[2018-06-09] MEDS: INSULIN LISPRO 100 UNITS/ML VIAL SUBQ SCH ×3 (07:00→16:30)
--- NOTE | 2018-06-09 07:30 | NUR ---
ENDORSED PT TO DAY SHIFT NURSE STERLING MOORE, PT STABLE, NO DISTRESS NOTED, CALL LIGHT WITHIN REACH.
[2018-06-09 07:52] LABS: ANION GAP 12.5 (8-16); CARBON DIOXIDE 27.4 mmol/L (21-32); CREATININE 2.7 mg/dL (0.7-1.3); POTASSIUM 3.9 mmol/L (3.5-5.1)
[2018-06-09 07:56] LABS: BASOPHILS # (AUTO) 0.1 K/uL (0.00-0.22); BASOPHILS % (AUTO) 0.9 % (0.0-2.0); EOSINOPHILS # (AUTO) 1.2 K/uL (0-0.4); EOSINOPHILS % (AUTO) 19.6 % (0.0-4.0); HEMATOCRIT 32.7 % (36-52); HEMOGLOBIN 10.6 g/dL (12.0-18.0); LYMPHOCYTES # (AUTO) 1.6 K/uL (2.0-11.5); LYMPHOCYTES % (AUTO) 26.3 % (20.5-51.1); MEAN CORPUSCULAR HEMOGLOBIN 28 pg (27-31); MEAN CORPUSCULAR HGB CONC 33 g/dL (33-37); MEAN CORPUSCULAR VOLUME 85.8 fL (80-94); MONOCYTES # (AUTO) 0.6 K/uL (0.8-1.0); MONOCYTES % (AUTO) 9.3 % (1.7-9.3); NEUTROPHILS # (AUTO) 2.6 K/uL (1.8-7.7); NEUTROPHILS % (AUTO) 43.9 % (42.2-75.2); PLATELET COUNT (AUTO) 102 K/uL (140-450); RED BLOOD CELL COUNT(AUTO) 3.82 MIL/uL (4.20-6.10); RED CELL DISTRIBUTION WIDTH 12.4 % (11.6-13.7)
[2018-06-09 08:00] VITALS: BP 118/64
[2018-06-09] MEDS: SENNA 8.6 MG TAB PO SCH (09:10)
[2018-06-09] MEDS: DOCUSATE SODIUM 100 MG GELCAP PO SCH (09:10)
[2018-06-09] MEDS: CALCIUM ACETATE 667 MG TAB PO SCH ×2 (09:10→13:26)
[2018-06-09] MEDS: LACTOBACILLUS RHAMNOSUS GG 1 EACH CAP PO SCH (09:10)
[2018-06-09] MEDS: ASCORBIC ACID 500 MG TAB PO SCH (09:10)
[2018-06-09] MEDS: FERROUS SULFATE 325 MG TABEC PO SCH (09:11)
[2018-06-09] MEDS: ATORVASTATIN 20 MG TAB PO SCH (09:11)
[2018-06-09] MEDS: ARIPiprazole 10 MG TAB PO SCH (09:11)
[2018-06-09] MEDS: VIT-B COMP/VIT-C/FOLIC ACID 1 TAB PO SCH (09:11)
[2018-06-09] MEDS: HYDROCORTISONE 1% OINT 30 GM TUBE TP SCH ×2 (09:12→13:27)
[2018-06-09] MEDS ORDERED: LEVO750T2 PO (09:41)
[2018-06-09] MEDS ORDERED: LACT1CAP59 PO (09:41)
--- NOTE | 2018-06-09 10:27 | NUR ---
Face sheet and 's orders faxed to [facility] fax # .
[2018-06-09] MEDS ORDERED: LEVOFLOXACIN 750 MG/D5W PREMIX 150 ML IV SCH (10:30)
--- NOTE | 2018-06-09 10:31 | NUR ---
Clinicals and face sheet faxed to [facility] fax # .
--- NOTE | 2018-06-09 10:38 | NUR ---
Clinicals faxed to [place] fax # .
[2018-06-09] MEDS ORDERED: LEVOFLOXACIN 750 MG/D5W PREMIX 150 ML IV ONE (11:23)
--- NOTE | 2018-06-09 14:42 | NUR ---
CM NOTE PER LIZ BLISS PH# [phone], FOR TRANSPORTATION GOING TO [facility], TO USE [facility] PH# [phone] AND NO AUTHORIZATION IS NEEDED BECAUSE THE PATIENT HAS [employer]MERLY [facility] [employer]. RANDY IZQUIERDO.
--- NOTE | 2018-06-09 15:12 | NUR ---
Spoke with Gladys from [facility], AUTHORIZATION #[id number] for [facility]. Clinicals faxed to Anneliese casey saw operator .
--- NOTE | 2018-06-09 15:57 | NUR ---
Informed Dayami WEBB and Radha MOORE pt is going to [facility] [address] [place] [address] [place]. [address], Phone number . The accepting MD is Dr. Quiñones. Instructed Radha MOORE to call [facility] and give report and informed them the last dialysis of the pt. [facility] wants the pt after 1800 tonight. Instructed Dayami WEBB to arranged transportation with [employer] .
[2018-06-09 16:00] VITALS: BP 120/65
--- NOTE | 2018-06-09 18:53 | NUR ---
PT DISCHARGED TO [facility]. PT DISCHARGE PAPERWORK UNABLE TO BE SIGNED BY PT. WRIST BAND WAS REMOVED. IV INTACT FOR CONTINUITY OF CARE AT [facility]. CALLED AND GAVE REPORT TO TERESA DURAN. PT TOOK ALL PERSONAL BELONGINGS WITH HIM. PT LEFT IN STABLE CONDITION. COPY OF CHART GIVEN TO TRANSPORT TEAM TO BE HANDED OFF TO ACCEPTING RN. ALL NEEDS MET.
[2018-06-12] MEDS ORDERED: MIDODRINE 5 MG TAB PO SCH (09:00)
== END 2018-06-09 18:53 | DRG 466 ==
LOC: MED 10:59 → MTU 14:23
PROVIDERS: ADMIT General Practice; ATTEND General Practice
PROC: 0T9B30Z Drainage of Bladder with Drainage Device, Percutaneous Approach (ICD-10-PCS; principal; 2018-06-05)
PROC: 0TPBX0Z Removal of Drainage Device from Bladder, External Approach (ICD-10-PCS; 2018-06-05)
PROC: 5A1D70Z Performance of Urinary Filtration, Intermittent, Less than 6 Hours Per Day (ICD-10-PCS; 2018-06-05)
PROC: 5A1D70Z Performance of Urinary Filtration, Intermittent, Less than 6 Hours Per Day (ICD-10-PCS; 2018-06-08)
DX: T83.018A Breakdown (mechanical) of other urinary catheter, initial encounter (principal); N17.0 Acute kidney failure with tubular necrosis; E11.22 Type 2 diabetes mellitus with diabetic chronic kidney disease; E11.51 Type 2 diabetes mellitus with diabetic peripheral angiopathy without gangrene; N30.90 Cystitis, unspecified without hematuria; N18.6 End stage renal disease; Z99.2 Dependence on renal dialysis; E78.5 Hyperlipidemia, unspecified; F25.9 Schizoaffective disorder, unspecified; I12.0 Hypertensive chronic kidney disease with stage 5 chronic kidney disease or end stage renal disease; Z93.3 Colostomy status; Z86.73 Personal history of transient ischemic attack (TIA), and cerebral infarction without residual deficits; Z86.718 Personal history of other venous thrombosis and embolism; F41.9 Anxiety disorder, unspecified; M19.90 Unspecified osteoarthritis, unspecified site; L20.9 Atopic dermatitis, unspecified; D63.8 Anemia in other chronic diseases classified elsewhere; G47.00 Insomnia, unspecified
CPT/HCPCS: 36415; 71045; 80048; 80053; 81001; 82150; 82728; 82948; 83036; 83540; 83690; 83735; 83880; 84100; 84134; 84443; 84484; 85025; 85045; 85610; 85730; 87081; 87086; 87186; 90935; 93005; 93925; 93970; 99285; J0696; J1815; J1956; J2270; J7030; J7060; P9046; Q0092

== ENCOUNTER 2018-07-03 10:00 | Inpatient (IN) | payer MEDICAID ==
[~2018-07-03] VITALS: Ht 167.6 cm; Wt 72.1 kg
--- NOTE | 2018-07-03 07:15 | NUR ---
ENDORSED CARE TO CARINA RN DAYSHIFT NURSE AT BEDSIDE FOR CONTINUITY OF CARE, PT RESTING WITH EYES CLOSED, PT IN STABLE CONDITION, ALL FALLS PRECAUTIONS IN PLACE.
[2018-07-03 10:00] VITALS: BP 107/64
[~2018-07-03 10:00] MED LIST changes: +FERR325E14 PO; +LEVO750T2 PO
--- NOTE | 2018-07-03 10:03 | NUR ---
PT BIBA BLS TO BED 1
--- NOTE | 2018-07-03 10:08 | NUR ---
52 YO M LIANA MICHELLE D/T "WAIT WAS TOO LONG AT DIALYSIS CENTER". PT ALSO CO 10/13 GENERALIZED BACK PAIN X 2 YEARS. DENIES RECENT TRAUMA OR INJURY. -- COLOSTOMY BAG AND SUPRAPUBIC INDWELLING CATHETER NOTED. PMH: HTN, DM, ESRD PT POSITIONED FOR COMFORT. NON-AMBULATORY, SIDE RAIL UP X 2. BED IN LOWEST POSITION. HOB ELEVATED. VSS. NO APPARENT DISTRESS AT THIS TIME. Addendum: 07/03/18 at 1847 by [facility] TO COCCYX/SACRAL REGION NOTED. NO DRESSING PRESENT. PHOTO TAKEN.
--- NOTE | 2018-07-03 10:33 | NUR ---
Patient being evaluated by physician at bedside.
--- NOTE | 2018-07-03 10:54 | NUR ---
LAB AT BEDSIDE.
--- NOTE | 2018-07-03 11:04 | NUR ---
PT TAKEN TO CT.
[2018-07-03 11:11] LABS: BASOPHILS % (AUTO) 0.5 % (0.0-2.0); EOSINOPHILS # (AUTO) 0.9 K/uL (0-0.4); EOSINOPHILS % (AUTO) 15.9 % (0.0-4.0); HEMATOCRIT 32.5 % (36-52); HEMOGLOBIN 10.6 g/dL (12.0-18.0); LYMPHOCYTES # (AUTO) 1.4 K/uL (2.0-11.5); LYMPHOCYTES % (AUTO) 23.8 % (20.5-51.1); MEAN CORPUSCULAR HEMOGLOBIN 28 pg (27-31); MEAN CORPUSCULAR HGB CONC 32 g/dL (33-37); MEAN CORPUSCULAR VOLUME 86.1 fL (80-94); MONOCYTES # (AUTO) 0.5 K/uL (0.8-1.0); MONOCYTES % (AUTO) 8.7 % (1.7-9.3); NEUTROPHILS # (AUTO) 2.9 K/uL (1.8-7.7); NEUTROPHILS % (AUTO) 51.1 % (42.2-75.2); PLATELET COUNT (AUTO) 124 K/uL (140-450); RED BLOOD CELL COUNT(AUTO) 3.78 MIL/uL (4.20-6.10); RED CELL DISTRIBUTION WIDTH 12.9 % (11.6-13.7); WHITE BLOOD COUNT (AUTO) 5.8 K/uL (4.8-10.8)
--- NOTE | 2018-07-03 11:18 | NUR ---
RETURNED FROM CT.
[2018-07-03 11:19] LABS: ANION GAP 14.1 (8-16); CARBON DIOXIDE 28.3 mmol/L (21-32); CHLORIDE 100 mmol/L (98-107); CREATININE 2.9 mg/dL (0.7-1.3); GFR ARICAN-AMERICAN 30 mL/min (>90); GLUCOSE 117 mg/dL (74-106); POTASSIUM 3.4 mmol/L (3.5-5.1); SODIUM SERUM 139 mmol/L (136-145); UREA NITROGEN, BLOOD 54 mg/dL (7-18)
[2018-07-03 11:21] LABS: ACETONE, SERUM NEGATIVE (NEGATIVE)
[2018-07-03 11:24] LABS: ALBUMIN 3.7 g/dL (3.4-5.0); AMYLASE 77 U/L (25-115); ASPARTATE AMINOTRANSFERASE 44 U/L (15-37); LIPASE 196 U/L (73-393); MAGNESIUM 2.2 mg/dL (1.8-2.4); TOTAL BILIRUBIN 0.4 mg/dL (0.0-1.0)
[2018-07-03 11:39] LABS: URIC ACID 6.2 mg/dL (2.6-7.2)
[2018-07-03 11:45] LABS: APPEARANCE,URINE HAZY (CLEAR); BILIRUBIN,URINE NEGATIVE (NEGATIVE); BLOOD, URINE 1+ (NEGATIVE); COLOR,URINE YELLOW (YELLOW); LEUKOCYTE ESTERASE ,URINE 3+ (NEGATIVE); NITRITE, URINE POSITIVE (NEGATIVE); UGLUCOSE NEGATIVE (NEGATIVE)
[2018-07-03] MEDS ORDERED: LEVOFLOXACIN 500 MG/D5W PREMIX 100 ML IV ONE (13:15)
[2018-07-03] MEDS ORDERED: ACETAMINOPHEN 325 MG TAB PO PRN (14:15)
[2018-07-03] MEDS ORDERED: LORazepam 1 MG TAB PO PRN (14:15)
[2018-07-03] MEDS ORDERED: ONDANSETRON 4 MG/2 ML VIAL IVP PRN (14:15)
[2018-07-03] MEDS ORDERED: traMADol 50 MG TAB PO PRN (14:15)
[2018-07-03 15:13] LABS: THYROID STIMULATING HORMONE 1.72 uIU/mL (0.34-3.74)
[2018-07-03 16:28] VITALS: BP 114/74
--- NOTE | 2018-07-03 16:28 | NUR ---
RECEIVED BEDSIDE REPORT FROM ER NURSE. PT STABLE, AWAKE, AND ALERT AND ORIENTED X4. NO SIGNS OF DISTRESS NOTED. NO REDNESS, SWELLING, OR INFLAMMATION NOTED ON IV SITE. BED ALARM ON, BED IN LOWEST POSITION. CALL REYNA WITHIN REACH. SAFETY MEASURES IN PLACE. PLAN OF CARE REVIEWED.
--- NOTE | 2018-07-03 16:28 | NUR ---
Patient will be admitted to care of Dr. Rojas. Admited to TELE. Will go to room 117. Belongings list completed. Report to Jazmin Ocasio RN.
[2018-07-03] MEDS: INSULIN LISPRO 100 UNITS/ML VIAL SUBQ SCH ×2 (16:30→21:00)
[2018-07-03] MEDS: CALCIUM ACETATE 667 MG TAB PO SCH (18:00)
[2018-07-03] MEDS: HYDROcodone/APAP 5/325 MG 1 TAB TAB PO PRN (18:01)
--- NOTE | 2018-07-03 18:09 | NUR ---
ADMINISTERED SCHEDULED MEDICATION, HELD SCHEDULED HUMALOG FOR BG 108. PT TOLERATED WELL.
--- NOTE | 2018-07-03 19:30 | NUR ---
ENDORSED PT TO TERESA MYERS FOR CONTINUITY OF CARE. PT STABLE.
--- NOTE | 2018-07-03 19:30 | NUR ---
RECEIVED REPORT FORM WEN REVELES AT BEDSIDE FOR CONTINUITY OF CARE, PT IN STABLE CONDITION.
[2018-07-03 20:00] VITALS: BP 96/65
[2018-07-03] MEDS ORDERED: ZOLPIDEM 5 MG TAB PO PRN (21:00)
--- NOTE | 2018-07-03 21:00 | NUR ---
PT GIVEN ORDERED SENOKOT AND VITAMIN C TABS. INSULIN HUMALOG HELD DUE TO F/S IN NORMAL RANGE 121. PT REFUSED HEPARIN IM FOR DVT PREVENTION.
--- NOTE | 2018-07-03 22:50 | NUR ---
JOEL FROM DIALYSIS CALLED TO SAY HE RECEIVED HD ORDER AND WILL BE THERE TO GIVEN DIALYSIS TO PT.
--- NOTE | 2018-07-03 23:15 | NUR ---
DIALYSIS STARTED. JOEL DIALYSIS NURSE POINTED OUT THAT SKIN UNDER PERMACATH LOOKS FLAKEY WITH OLD DRAINAGE. JOEL SAID HE THOUGH IT LOOKED INFECTED. HE SENT A PIC VIA PHONE TO DR. GODFREY, DRUM SANDER SETTER. PT HAS NO C/O OF PAIN OR DISTRESS NOTED.
[2018-07-03] MEDS: ASCORBIC ACID 500 MG TAB PO SCH (23:57)
[2018-07-03] MEDS: SENNA 8.6 MG TAB PO SCH (23:57)
--- NOTE | 2018-07-04 02:10 | NUR ---
DIALYSIS COMPLETED. POST DIALYSIS V/S ARE FOLLOWS T 98.4 P 85 R 18 B/P 97/65 02 95% ON R/A AND P 85.
--- NOTE | 2018-07-04 03:01 | NUR ---
AT 0245 [facility] CALL[facility] AND ASKED ABOUT PT AND WHY PT ADMITTED.AND HOW IS HE DOING.SHE SAID THEY DIDN'T KNOW PT IS HERE AND ADMITTED BECAUSE PT TRANSFERRED FROM [facility]IS C[facility] HERE AND NOBODY CALLED THEM FROM HD CENTER THAT THEY TRANSFERRED PT HERE.
[2018-07-04 04:00] VITALS: BP 100/62
--- NOTE | 2018-07-04 04:00 | NUR ---
PT IN BED NO S/S OF PAIN OR DISTRESS NOTED V/S FOLLOWS T 97.6 P 77 R 18 B/P 02 97% ON ROOM AIR.
[2018-07-04 06:36] LABS: BASOPHILS % (AUTO) 0.8 % (0.0-2.0); EOSINOPHILS # (AUTO) 0.8 K/uL (0-0.4); EOSINOPHILS % (AUTO) 16.7 % (0.0-4.0); HEMATOCRIT 31.7 % (36-52); HEMOGLOBIN 10.4 g/dL (12.0-18.0); LYMPHOCYTES # (AUTO) 1.1 K/uL (2.0-11.5); LYMPHOCYTES % (AUTO) 22.4 % (20.5-51.1); MEAN CORPUSCULAR HEMOGLOBIN 28 pg (27-31); MEAN CORPUSCULAR HGB CONC 33 g/dL (33-37); MEAN CORPUSCULAR VOLUME 85.3 fL (80-94); MONOCYTES # (AUTO) 0.5 K/uL (0.8-1.0); MONOCYTES % (AUTO) 9.7 % (1.7-9.3); NEUTROPHILS # (AUTO) 2.4 K/uL (1.8-7.7); NEUTROPHILS % (AUTO) 50.4 % (42.2-75.2); PLATELET COUNT (AUTO) 112 K/uL (140-450); RED BLOOD CELL COUNT(AUTO) 3.72 MIL/uL (4.20-6.10); RED CELL DISTRIBUTION WIDTH 12.7 % (11.6-13.7); WHITE BLOOD COUNT (AUTO) 4.8 K/uL (4.8-10.8)
[2018-07-04 07:11] LABS: ALBUMIN 3.5 g/dL (3.4-5.0); ANION GAP 15.2 (8-16); CARBON DIOXIDE 25.4 mmol/L (21-32); CREATININE 1.9 mg/dL (0.7-1.3); POTASSIUM 3.6 mmol/L (3.5-5.1); TOTAL BILIRUBIN 0.4 mg/dL (0.0-1.0)
[2018-07-04] MEDS: INSULIN LISPRO 100 UNITS/ML VIAL SUBQ SCH ×3 (07:30→16:30)
--- NOTE | 2018-07-04 07:30 | NUR ---
RECEIVED BEDSIDE REPORT FROM SOCK LINING STITCHER NURSE FOR CONTINUITY OF CARE. PT IN STABLE CONDITION. RESPIRATIONS EVEN AND UNLABORED. IV INTACT AND PATENT. BED IN LOW POSITION. CALL LIGHT AT BEDSIDE. BED ALARM ON. SAFETY MEASURES IN PLACE. WILL CONTINUE TO MONITOR.
[2018-07-04 08:00] VITALS: BP 102/64
[2018-07-04] MEDS: CALCIUM ACETATE 667 MG TAB PO SCH ×2 (08:56→13:49)
[2018-07-04] MEDS: ASCORBIC ACID 500 MG TAB PO SCH (08:57)
[2018-07-04] MEDS: SENNA 8.6 MG TAB PO SCH (08:57)
[2018-07-04] MEDS ORDERED: FERROUS SULFATE 325 MG TABEC PO SCH (09:00)
[2018-07-04] MEDS ORDERED: ARIPiprazole 10 MG TAB PO SCH (09:00)
[2018-07-04] MEDS ORDERED: ATORVASTATIN 20 MG TAB PO SCH (09:00)
[2018-07-04] MEDS ORDERED: VIT-B COMP/VIT-C/FOLIC ACID 1 TAB PO SCH (09:00)
[2018-07-04] MEDS ORDERED: DOCUSATE SODIUM 100 MG GELCAP PO SCH (09:00)
--- NOTE | 2018-07-04 09:14 | NUR ---
GAVE ORDERED DUE MEDICATIONS AT THIS TIME. PT TOLERATED WELL. WILL CONTINUE TO MONITOR. BED IN LOW POSITION. CALL LIGHT AT BEDSIDE. BED ALARM ON.
--- NOTE | 2018-07-04 11:10 | NUR ---
PT LYING IN BED SLEEPING. RESPIRATIONS MIGUEL A AND UNLABORED. WILL CONTINUE TO MONITOR.
--- NOTE | 2018-07-04 11:30 | NUR ---
BLOOD SUGAR 149 NO INSULIN COVERAGE NEEDED AT THIS TIME. PT IN STABLE CONDITION.
[2018-07-04 12:00] VITALS: BP 110/66
[2018-07-04] MEDS: HYDROcodone/APAP 5/325 MG 1 TAB TAB PO PRN (13:48)
[2018-07-04 16:00] VITALS: BP 109/62
--- NOTE | 2018-07-04 16:30 | NUR ---
BLOOD SUGAR 135 NO INSULIN NEEDED AT THIS TIME
--- NOTE | 2018-07-04 17:25 | NUR ---
GAVE DISCHARGE INSTRUCTIONS, PT VERBALIZED UNDERSTANDING. IV REMOVED LUMEN INTACT. ID BAND REMOVE. DISCHARGE INSTRUCTIONS GIVEN TO TRANSPORT TEAM, TRANSPORT TEAM VERBALIZED UNDERSTANDING. PT PLACED ON GURNEY IN STABLE CONDITION.
--- NOTE | 2018-07-05 09:15 | NUR ---
WOUND CARE EVALUATION NOT DONE, PT. DISCHARGED.
== END 2018-07-04 17:38 | DRG 40 ==
LOC: MED 10:00 → MTU 15:17
PROVIDERS: ADMIT Hospitalist; ATTEND Hospitalist
PROC: 5A1D70Z Performance of Urinary Filtration, Intermittent, Less than 6 Hours Per Day (ICD-10-PCS; principal; 2018-07-03)
DX: G37.3 Acute transverse myelitis in demyelinating disease of central nervous system (principal); I13.2 Hypertensive heart and chronic kidney disease with heart failure and with stage 5 chronic kidney disease, or end stage renal disease; E11.22 Type 2 diabetes mellitus with diabetic chronic kidney disease; F25.9 Schizoaffective disorder, unspecified; N18.6 End stage renal disease; N39.0 Urinary tract infection, site not specified; G82.20 Paraplegia, unspecified; G89.29 Other chronic pain; M19.90 Unspecified osteoarthritis, unspecified site; E87.6 Hypokalemia; D63.8 Anemia in other chronic diseases classified elsewhere; F41.9 Anxiety disorder, unspecified; G47.00 Insomnia, unspecified; F63.9 Impulse disorder, unspecified; E78.5 Hyperlipidemia, unspecified; L25.9 Unspecified contact dermatitis, unspecified cause; R07.89 Other chest pain; Z99.2 Dependence on renal dialysis; Z79.4 Long term (current) use of insulin; Z79.899 Other long term (current) drug therapy; Z86.711 Personal history of pulmonary embolism; Z79.01 Long term (current) use of anticoagulants; I50.30 Unspecified diastolic (congestive) heart failure
CPT/HCPCS: 36415; 36600; 71045; 80053; 81001; 82009; 82140; 82150; 82803; 82948; 83036; 83540; 83690; 83735; 84443; 84484; 84550; 85025; 85379; 86140; 87081; 87086; 90935; 99285; G0482; J0696; J1644; J1815; J1956; J7060; Q0092

== ENCOUNTER 2019-06-16 19:51 | Emergency (ER) | payer MEDICAID ==
[~2019-06-16] VITALS: Ht 175.3 cm; Wt 89.8 kg
[2019-06-16 19:55] VITALS: BP 115/61
[2019-06-17 02:17] VITALS: BP 131/62
[2019-06-17] MEDS ORDERED: ZINC220T4 GT/PO (10:53)
[2019-06-17] MEDS ORDERED: APIX5TAB PO (10:54)
== END 2019-06-17 02:17 | disposition home or self-care (01) ==
LOC: MED 19:51
DX: N39.0 Urinary tract infection, site not specified (principal); E11.22 Type 2 diabetes mellitus with diabetic chronic kidney disease; I12.0 Hypertensive chronic kidney disease with stage 5 chronic kidney disease or end stage renal disease; N18.6 End stage renal disease; F20.9 Schizophrenia, unspecified; Z46.6 Encounter for fitting and adjustment of urinary device; Z88.1 Allergy status to other antibiotic agents; Z88.0 Allergy status to penicillin
CPT/HCPCS: 81002; 82948; 99283

== ENCOUNTER 2019-06-17 10:35 | Inpatient (IN) | payer MEDICAID ==
[~2019-06-17] VITALS: Ht 175.3 cm; Wt 81.6 kg
[2019-06-17 10:39] VITALS: BP 133/67
--- NOTE | 2019-06-17 10:39 | NUR ---
BIBA TAKEN TO BED 6
--- NOTE | 2019-06-17 10:42 | NUR ---
53 Y/O MALE [facility] FOR [facility]OVAL OF EMERY CATHETER TO RIGHT FEMUR. 8/10 PAIN. PT ALSO HAS COLOSTOMY BAG, AND SUPRAPUBIC CROW. PT WAS HERE IN THE ER YESTERDAY. WOUND ASSESSMENT, PT WAS D/C'D WITH [facility] ANTIBIOTICS AND WOUND CARE.
[2019-06-17] MEDS ORDERED: ZINC220T4 GT/PO (10:53)
[2019-06-17] MEDS ORDERED: APIX5TAB PO (10:54)
--- NOTE | 2019-06-17 11:17 | NUR ---
ERMD UNABLE TO REMOVE EMERY CATHETER TO RIGHT FEMUR. MILDLY SWOLLEN AT SITE, WITHOUT DRAINAGE, REDRESSED SITE, PER ERMD PT WILL BE ADMITTED FOR SURGICAL REMOVAL
--- NOTE | 2019-06-17 11:49 | NUR ---
LAB AT BEDSIDE
--- NOTE | 2019-06-17 11:49 | NUR ---
WOUND PICTURED TAKEN AND DOCUMENTED UNDER WOUND ASSESSMENT
--- NOTE | 2019-06-17 12:04 | NUR ---
XRAY AT BEDSIDE
[2019-06-17 12:05] LABS: BASOPHILS % (AUTO) 0.4 % (0.0-2.0); EOSINOPHILS # (AUTO) 0.6 K/uL (0-0.4); EOSINOPHILS % (AUTO) 10.6 % (0.0-4.0); HEMATOCRIT 36.3 % (36-52); HEMOGLOBIN 11.7 g/dL (12.0-18.0); LYMPHOCYTES # (AUTO) 0.8 K/uL (2.0-11.5); LYMPHOCYTES % (AUTO) 13.7 % (20.5-51.1); MEAN CORPUSCULAR HEMOGLOBIN 29 pg (27-31); MEAN CORPUSCULAR HGB CONC 32 g/dL (33-37); MEAN CORPUSCULAR VOLUME 90.2 fL (80-94); MONOCYTES # (AUTO) 0.4 K/uL (0.8-1.0); MONOCYTES % (AUTO) 7.3 % (1.7-9.3); NEUTROPHILS # (AUTO) 4.1 K/uL (1.8-7.7); PLATELET COUNT (AUTO) 97 K/uL (140-450); RED BLOOD CELL COUNT(AUTO) 4.02 MIL/uL (4.20-6.10); RED CELL DISTRIBUTION WIDTH 15.3 % (11.6-13.7)
[2019-06-17 12:24] LABS: PROTHROMBIN TIME 11.6 secs (10.8-13.4)
[2019-06-17 12:25] LABS: ALBUMIN 2.8 g/dL (3.4-5.0); ANION GAP 10.9 (8-16); CARBON DIOXIDE 29.8 mmol/L (21-32); CREATININE 2.3 mg/dL (0.6-1.3); POTASSIUM 3.7 mmol/L (3.5-5.1); TOTAL BILIRUBIN 0.4 mg/dL (0.0-1.0)
--- NOTE | 2019-06-17 12:36 | NUR ---
MULTIPLE ATTEMPTS FROM VARIOUS NURSES WERE MADE, MARIAA RN WAS ABLE TO ESTABLISH IV 24 G IN L HAND
--- NOTE | 2019-06-17 13:25 | NUR ---
RECEIVED CALL FROM KEVIN GUALLPA FROM [facility] WILL CALL BACK TO AUTHORIZE ADMISSION [phone]
--- NOTE | 2019-06-17 13:58 | NUR ---
accu check 145, pt resting in bed, awake, pending admission orders
[2019-06-17 14:15] VITALS: BP 107/50
--- NOTE | 2019-06-17 14:15 | NUR ---
RECEIVED BEDSIDE REPORT FROM ED NURSE. PT RESTING IN BED UPON ARRIVAL. ABLE TO MAKE SOME NEEDS KNOWN. RESPIRATIONS EVEN AND UNLABORED WITH NO SOB OR RESPIRATORY DISTRESS. SKIN WARM AND DRY TO TOUCH. COLOSTOMY IS DRAINING SOFT, BROWN, STOOL. SUPRAPUBIC CATHETER IS DRAINING CLEAR, YELLOW URINE WITHOUT CLOGS OR SEDIMENTS. VITAL SIGNS UPON ARRIVAL: 107/50 BP, 18 RR, 78 HR, 97.8 TEMP, AND 98% SPO2 ON ROOM AIR. MRSA SWAB COLLECTED. SAFETY MEASURES IN PLACE. WILL CONTINUE TO MONITOR.
--- NOTE | 2019-06-17 14:25 | NUR ---
Patient will be admitted to care of [facility]. Admited to MED SURG. Will go to room 114. Belongings list completed. Report to TERESA CHU.
[2019-06-17] MEDS ORDERED: LORazepam 2 MG/ML VIAL IM/IVP PRN (14:35)
[2019-06-17] MEDS ORDERED: ONDANSETRON 4 MG/2 ML VIAL IM/IVP PRN (14:35)
[2019-06-17] MEDS ORDERED: MORPHINE SULFATE 2 MG/ML SYR IVP PRN (14:35)
[2019-06-17] MEDS ORDERED: HYDROcodone/APAP 5/325 MG 1 TAB TAB PO PRN (14:35)
[2019-06-17] MEDS ORDERED: ACETAMINOPHEN 325 MG TAB PO PRN (14:35)
[2019-06-17] MEDS ORDERED: DOCUSATE SODIUM 100 MG GELCAP PO PRN (14:35)
[2019-06-17 15:13] LABS: PHOSPHORUS 3.5 mg/dL (2.5-4.9); THYROID STIMULATING HORMONE 1.39 uIU/mL (0.34-3.74)
--- NOTE | 2019-06-17 15:43 | NUR ---
WOUND CARE EVALUATION NOTE: REASON FOR EVALUATION: SACRALCOCCYX WOUNDS SKIN ASSESSMENT DONE WITH PRIMARY RN WITH THIS 52 Y/O MALE PT ADMITTED FROM SNF TO [facility] WITH INITIAL DX INFECTED EMERY CATH. PAST MEDICAL HX: ESRD ON HD, SUPRAPUBIC CATH, COLOSTOMY, CVA, DVT, HTN, HLD, PAD, DIABETES, CEREBRAL INFARCTION, ANEMIA, PRESSURE ULCER AT THE SACRAL AREA, CAD, PARAPLEGIA, AND ENCEPHALOPATHY. PT. ADMITTED THIS TIME WITH STAGE 4 PRESSURE ULCERS TO SACRALCOCCYX AND LEFT HEEL PRESSURE ULCERS. PT IS AWAKE. SKIN IS WARM AND DRY, BLE NO HAIR GROWTH, MULTIPLE SCARS AND DRY SCABS, SKIN INTACT, NO EDEMA. DORSAL PEDAL PULSES PRESENT AND NORMAL. FUNGAL NAILS X 10 TOES. BILATERAL HEELS THIN CALLUSES. PLAN OF CARE DISCUSSED WITH PRIMARY RN. INTEGUMENTARY: -LLQ ABDOMEN COLOSTOMY FUNCTIONING WITH MODERATE AMOUNT SOFT BROWN STOOL OUTPUT. -SUPRAPUBIC SITE, STOMA RED AND MOIST, NO ODOR, BELLE-STOMA SKIN INTACT. -PRESSURE INJURIES STAGE 4 TO SACRALCOCCYX 6X4X0.5 CM WOUND BED RED, 100% GRANULATING TISSUE, MOIST, NO ODOR, BELLE-WOUND SKIN INTACT SURROUNDING REDNESS WITH HEALED SCARS -LEFT HEEL PRESSURE ULCER STAGE4, 4X3XX0.3 CM, WOUND BED ARE RED, 100% GRANULATING TISSUE, AND MOIST, NO ODOR, PERIWOUND SKIN INTACT WITH THIN CALLUSES -TINEA PEDIS ULCERATION TO RIGHT TOES INTERSPACES -DRY SCABS TO LOWER EXTREMITIES, SKIN INTACT. RECOMMENDATIONS: -CLEANSE SACRALCOCCYX AND LEFT HEEL WITH WOUND CARE SOLUTION, PAT DRY, APPLY HYDROGEL AND COVER WITH COMPOSITE (ISLAND) DRESSING QD AND PRN IF SOILING -PAINT BLE SCABS WITH BETADINE SOLUTION BID AND MEI -APPLY SOAKED BETADINE 4X4 TO RIGHT TOES INTERSPACES BID -OFFLOAD BILATERAL HEELS BY PLACING PILLOWS UNDER CALVES UNLESS OTHERWISE CONTRAINDICATED -PRESSURE REDISTRIBUTION SURFACE THERAPY -TURN AND REPOSITION Q2H, OFFLOAD SACRALCOCCYX AND BUTTOCKS BY TURNING RIGHT AND LEFT -CONTINUE TO FOLLOW RD RECOMMENDATIONS ALL ABOVE RECOMMENDATIONS DISCUSSED WITH PRIMARY RN. WILL FOLLOW UP PT Q7-10 DAYS. PLEASE CONTACT WOUND CARE NURSE FOR ANY QUESTION AND CHANGE OF WOUND CONDITION
--- NOTE | 2019-06-17 15:45 | NUR ---
RECEIVED CRITICAL LAB FROM CHEMISTRY. TROPONIN 0.007. DR. PAYAN IS AWARE. SAFETY MEASURES IN PLACE. WILL CONTINUE TO MONITOR.
[2019-06-17 16:00] VITALS: BP 137/58
[2019-06-17] MEDS ORDERED: LORazepam 1 MG TAB PO PRN (16:30)
[2019-06-17] MEDS ORDERED: MELATONIN 3 MG TAB PO PRN (16:35)
[2019-06-17] MEDS ORDERED: LACTULOSE 20 GM/30 ML UDC PO SCH (17:00)
[2019-06-17] MEDS: INSULIN LISPRO 100 UNITS/ML VIAL SUBQ SCH ×2 (17:30→21:00)
--- NOTE | 2019-06-17 17:30 | NUR ---
ADMINISTERED SCHED MED PRESCRIBED PER MD ORDER. PT TOLERATED WELL. MEDICATION EDUCATION PERFORMED. PT VERBALIZED UNDERSTANDING. SAFETY MEASURES IN PLACE. WILL CONTINUE TO MONITOR.
[2019-06-17] MEDS: CALCIUM ACETATE 667 MG TAB PO SCH (17:31)
--- NOTE | 2019-06-17 19:25 | NUR ---
RECEIVED BEDSIDE REPORT FROM AM SHIFT RN FOR PT'S CONTINUITY OF CARE, PT IS UNDER OBSERVATION. PT IS AAOX2, IS ON ROOM AIR, HAS LEFT HAND 24G SALINE LOCK, PT DENIES ANY PAIN. EXPLAINED TO PT THE SOURCE INSPECTOR ROUTINE, PT VERBALIZED UNDERSTANDING. SAFETY MEASURES, ISOLATION PRECAUTION IN PLACE, AND CALL LIGHT IS WITHIN REACH. WILL MONITOR PT THROUGHOUT SHIFT.
--- NOTE | 2019-06-17 19:25 | NUR ---
ENDORSED AT BEDSIDE TO NIGHTSHIFT NURSE. PT RESTING IN BED UPON ARRIVAL. ABLE TO MAKE NEEDS KNOWN. RESPIRATIONS EVEN AND UNLABORED WITH NO SOB OR RESPIRATORY DISTRESS. SKIN WARM AND DRY TO TOUCH. SAFETY MEASURES IN PLACE. PT IS STABLE
[2019-06-17] MEDS ORDERED: DEXTROSE 50% 50 ML SYR IVP PRN (20:40)
--- NOTE | 2019-06-17 21:05 | NUR ---
RECEIVED CALL FROM LAB FOR CRITICAL LAB VALUE TROP 0.082. NOTIFIED KAREN VARGASO.
[2019-06-17] MEDS: SENNA 8.6 MG TAB PO SCH (21:28)
[2019-06-17] MEDS: ASCORBIC ACID 500 MG TAB PO SCH (21:28)
[2019-06-17] MEDS: SODIUM CHLORIDE FLUSH 10 ML SYR IVF SCH (21:29)
--- NOTE | 2019-06-17 21:35 | NUR ---
ADMINISTERED SCHEDULED MEDICATIONS ORDERED. PT TOLERATED IT WELL. OBTAINED CONSENT FROM PT FOR PROCEDURE WITH DR. RUTH IN THE A.M. DR. SALINAS AT BEDSIDE, EXPLAINED TO PT ABOUT THE SX AND CONSENT. BLOOD GLUCOSE CHECKED AND CHARTED. NO INSULIN COVERAGE NEEDED. PER MD, HOLD SCHEDULED HUMALOG 4 UNITS SUBQ AND USE TH SLIDING SCALE PROTOCOL. PT MADE COMFORTABLE, PT DENIES ANY PAIN. WILL CONTINUE TO MONITOR PT.
[2019-06-17] MEDS: BLOOD GLUCOSE MONITORING 1 DEV DEV FS SCH (21:36)
--- NOTE | 2019-06-18 | NUR ---
PT REQUESTED AND PROVIDED FOR SOMETHING TO DRINK, INFORMED PT THAT HE WILL BE NPO AFTER MIDNIGHT FOR SCHEDULED PROCEDURE WITH DR. RUTH IN A.M. PT VERBALIZED UNDERSTANDING. PT MADE COMFORTABLE. WILL MONITOR PT THROUGHOUT SHIFT.
[2019-06-18] MEDS: GAUZE TP SCH ×2 (01:57→13:31)
--- NOTE | 2019-06-18 02:02 | NUR ---
MADE ROUNDS. PT ASLEEP WITH NO SIGNS OF DISTRESS. WILL CONTINUE TO MONITOR PT.
--- NOTE | 2019-06-18 04:00 | NUR ---
PT ASLEEP WITH NO SIGNS OF DISTRESS. WILL CONTINUE TO MONITOR PT.
--- NOTE | 2019-06-18 05:00 | NUR ---
ADMINISTERED SCHEDULED NS IVP, IV SITE PATENT, INTACT, AND ASYMPTOMATIC. PT DENIES ANY PAIN. WILL CONTINUE TO MONITOR PT.
[2019-06-18] MEDS: SODIUM CHLORIDE FLUSH 10 ML SYR IVF SCH ×3 (05:32→20:24)
--- NOTE | 2019-06-18 06:15 | NUR ---
PT YELLING, CALLING OUT "MAMA", CHECKED WITH THE PT, REQUESTED FOR A TOWEL UNDER HIS HEAD FOR MORE COMFORT. PT DENIES ANY PAIN OR OTHER DISCOMFORT. PT MADE COMFORTABLE, SAFETY MEASURES IN PLACE, AND CALL LIGHT IS WITHIN REACH.
--- NOTE | 2019-06-18 07:15 | NUR ---
RECEIVED BEDSIDE REPORT FROM NIGHTSHIFT NURSE. PT RESTING IN BED UPON ARRIVAL. ABLE TO MAKE NEEDS KNOWN. RESPIRATIONS EVEN AND UNLABORED WITH NO SOB OR RESPIRATORY DISTRESS. SKIN WARM AND DRY TO TOUCH. IV SITE IN LEFT HAND 24G IS CLEAN, DRY, AND INTACT. SAFETY MEASURES IN PLACE. WILL CONTINUE TO MONITOR.
[2019-06-18] MEDS: INSULIN LISPRO 100 UNITS/ML VIAL SUBQ SCH ×4 (07:30→21:00)
[2019-06-18] MEDS: BLOOD GLUCOSE MONITORING 1 DEV DEV FS SCH ×4 (07:30→20:24)
--- NOTE | 2019-06-18 07:30 | NUR ---
PT BLOOD SUGAR IS 98. NO INSULIN COVERAGE NEEDED. SAFETY MEASURES IN PLACE. WILL CONTINUE TO MONITOR
[2019-06-18 08:00] VITALS: BP 116/65
[2019-06-18 08:31] LABS: FERRITIN 192 ng/mL (30-400); FOLIC ACID > 20.00 ng/mL (>3.0)
[2019-06-18] MEDS ORDERED: ZINC 220 MG GT/PO SCH (09:00)
[2019-06-18] MEDS ORDERED: LIDOCAINE/EPI 1% 1:100000 20 ML VIAL INJ ONE (09:20)
[2019-06-18] MEDS ORDERED: MORPHINE SULFATE 4 MG/ML SYR ONE (09:25)
[2019-06-18] MEDS ORDERED: LIDOCAINE MPF 1% 5 ML ONE (09:26)
[2019-06-18] MEDS ORDERED: MORPHINE SULFATE 4 MG/ML SYR IVP STA (09:30)
--- NOTE | 2019-06-18 09:30 | NUR ---
DR. RUTH PERFORMED AT BEDSIDE, REMOVAL OF INFECTED EMERY CATH WELL DEBRIDEMENT OF SACRAL ULCER. SAFETY MEASURES IN PLACE. WILL CONTINUE TO MONITOR
[2019-06-18] MEDS: CALCIUM ACETATE 667 MG TAB PO SCH ×3 (09:45→17:29)
--- NOTE | 2019-06-18 09:45 | NUR ---
ADMINISTERED SCHED MED PRESCRIBED PER MD ORDER. PT TOLERATED WELL. MEDICATION EDUCATION PERFORMED. PT VERBALIZED UNDERSTANDING. SAFETY MEASURES IN PLACE. WILL CONTINUE TO MONITOR.
[2019-06-18] MEDS: DOCUSATE SODIUM 100 MG GELCAP PO SCH (09:46)
[2019-06-18] MEDS: ARIPiprazole 10 MG TAB PO SCH (09:46)
[2019-06-18] MEDS: FERROUS SULFATE 325 MG TABEC PO SCH (09:47)
[2019-06-18] MEDS: VIT-B COMP/VIT-C/FOLIC ACID 1 TAB PO SCH (09:48)
[2019-06-18] MEDS: ATORVASTATIN 20 MG TAB PO SCH (09:48)
[2019-06-18] MEDS: SENNA 8.6 MG TAB PO SCH ×2 (09:49→21:47)
[2019-06-18] MEDS: ASCORBIC ACID 500 MG TAB PO SCH ×2 (09:49→21:47)
[2019-06-18] MEDS: ZINC SULF 220 MG CAP PO SCH (09:50)
--- NOTE | 2019-06-18 11:29 | NUR ---
DC PLANN[age] YRS OLD MALE PATIENT WAS ADMITTED FROM [facility] WITH A DX OF INFECTED EMERY CATHETER. PT HAS A HX OF ESRD ON HD , TRANSVERSE MYELITIS, CAD, PARAPLEGIC LEFT SUBCLAVIAN DVT SCHIZOAFFECTIVE DISORDER AND ANXIETY. UNABLE TO REMOVE THE OLD HD CATHETER AT ER AND PT WAS ADMITTED FOR SURGICAL REMOVAL OF THE DIALYSIS TUNNELED CATHETER. SEEN BY COMPOSITE SCIENCE TEACHER DR CADENA /ALIS AND RECOMMENDED THE OLD CATHETER TO BE REMOVED. CONSULTED WITH DR CADENA SURGEON . SEEN BY DR RUTH AND PERFORMED DEBRIDEMENT OF SACROCOCCYX DECUBITUS ULCER AND REMOVED RT FEMORAL TUNNELLED DIALYSIS CATHETER. AWAITING FOR THE COMPOSITE SCIENCE TEACHER RECOMMENDATION. DC PLAN TO GO BACK TO [facility] WHEN STABLE CM TO FOLLOW. Addendum: 06/20/19 at 1146 by Dayami Tenorio DC PLANNING: PT HAS A DC ORDER AFTER HEMODIALYSIS FAXED ALL THE PAPERWORK TO [facility] AND CALLED THE SINDHU SZYMANSKI A MESSAGE. CM TO FOLLOW Addendum: 06/20/19 at 1302 by Dayami Tenorio PRIETO PLANNING CALLED [facility] CLARIFIED PT HAS A CHAIR TIME MWF AT 12:30 , STILL WAITING FROM [facility] TO GET THE ROOM NUMBER Addendum: 06/20/19 at 1619 by Nicolas Monterroso SS JAIME contacted Esha from [facility] [phone]. Per Esha, patient will return to room [address] Cholo Eason. JAIME contacted [facility] department [phone] to arrange transportation from [facility] to [facility]. JAIME spoke with Clyde. Clyde stated that [employer] would be arriving at 6:30PM and provided reference #[id number]. Nurse was notified. No further needs identified.
--- NOTE | 2019-06-18 11:30 | NUR ---
PT BLOOD SUGAR IS 100. NO INSULIN COVERAGE NEEDED AT THIS TIME. SAFETY MEASURES IN PLACE. WILL CONTINUE TO MONITOR
--- NOTE | 2019-06-18 13:15 | NUR ---
WOUND CARE PERFORMED PRESCRIBED PER WOUND CARE ORDER. PT TOLERATED WELL. SAFETY MEASURES IN PLACE. WILL CONTINUE TO MONITOR
[2019-06-18] MEDS: SKINTEGRITY HYDROGEL TP SCH (13:33)
--- NOTE | 2019-06-18 14:38 | NUR ---
HOURLY ROUNDING. PT RESTING IN BED UPON ARRIVAL. ABLE TO MAKE NEEDS KNOWN. RESPIRATIONS EVEN AND UNLABORED WITH NO SOB OR RESPIRATORY DISTRESS. SKIN WARM AND DRY TO TOUCH. SAFETY MEASURES IN PLACE. WILL CONTINUE TO MONITOR
--- NOTE | 2019-06-18 15:30 | NUR ---
DIALYSIS NURSE ALMA IS HERE. REPORT WAS GIVEN [facility]. PT WILL BE RECEIVING HD VIA AV GRAFT VIA LEFT THIGH. SAFETY MEASURES IN PLACE. WILL CONTINUE TO MONITOR Addendum: 06/18/19 at 1701 by Lolis Salinas RN WRONG ENTRY
[2019-06-18 16:00] VITALS: BP 116/58
--- NOTE | 2019-06-18 16:30 | NUR ---
BLOOD SUGAR IS 114. NO INSULIN COVERAGE NEEDED AT THIS THIS. SAFETY MEASURES IN PLACE
--- NOTE | 2019-06-18 17:30 | NUR ---
ADMINISTERED SCHED MED PRESCRIBED PER MD ORDER. PT TOLERATED WELL. MEDICATION EDUCATION PERFORMED. PT VERBALIZED UNDERSTANDING. SAFETY MEASURES IN PLACE. WILL CONTINUE TO MONITOR.
--- NOTE | 2019-06-18 17:40 | NUR ---
PT IS STARTING DIALYSIS. MARQUEZ THE DIALYSIS NURSE IS AT BEDSIDE. SAFETY MEASURES IN PLACE.
[2019-06-18 17:54] LABS: BASOPHILS % (AUTO) 0.5 % (0.0-2.0); EOSINOPHILS # (AUTO) 0.7 K/uL (0-0.4); EOSINOPHILS % (AUTO) 11.2 % (0.0-4.0); HEMATOCRIT 39.8 % (36-52); HEMOGLOBIN 12.5 g/dL (12.0-18.0); LYMPHOCYTES # (AUTO) 1.3 K/uL (2.0-11.5); LYMPHOCYTES % (AUTO) 21.1 % (20.5-51.1); MEAN CORPUSCULAR HEMOGLOBIN 29 pg (27-31); MEAN CORPUSCULAR HGB CONC 32 g/dL (33-37); MEAN CORPUSCULAR VOLUME 92.4 fL (80-94); MONOCYTES # (AUTO) 0.4 K/uL (0.8-1.0); NEUTROPHILS # (AUTO) 3.9 K/uL (1.8-7.7); NEUTROPHILS % (AUTO) 61.2 % (42.2-75.2); PLATELET COUNT (AUTO) 91 K/uL (140-450); RED CELL DISTRIBUTION WIDTH 15.6 % (11.6-13.7); WHITE BLOOD COUNT (AUTO) 6.4 K/uL (4.8-10.8)
[2019-06-18 18:07] LABS: ANION GAP 14.7 (8-16); CARBON DIOXIDE 24.6 mmol/L (21-32); CREATININE 2.5 mg/dL (0.6-1.3); POTASSIUM 4.3 mmol/L (3.5-5.1)
[2019-06-18 18:08] LABS: PHOSPHORUS 5.3 mg/dL (2.5-4.9)
--- NOTE | 2019-06-18 19:05 | NUR ---
ENDORSED AT BEDSIDE TO NIGHTSHIFT NURSE. PT RESTING IN BED UPON ARRIVAL. ABLE TO MAKE NEEDS KNOWN. RESPIRATIONS EVEN AND UNLABORED WITH NO SOB OR RESPIRATORY DISTRESS. SKIN WARM AND DRY TO TOUCH. SAFETY MEASURES IN PLACE. PT STABLE
--- NOTE | 2019-06-18 19:17 | NUR ---
RECEIVED PATIENT FROM AM SHIFT NURSE IN STABLE CONDITION FOR CONTINUITY OF CARE. RESPIRATIONS EVEN, UNLABORED. PATIENT CURRENTLY RECEIVING DIALYSIS. SALINE LOCK TO LEFT HAND 24G PATENT/INTACT. SUPRAPUBIC CATHETER PATENT, CLEAR YELLOW URINE NOTED IN DRAINAGE BAG. NO C/O PAIN. NO S/SX ACUTE DISTRESS. ISOLATION PRECAUTIONS OBSERVED BY ALL STAFF. SAFETY PRECAUTIONS IN PLACE. CALL LIGHT WITHIN REACH. WILL CONTINUE TO MONITOR.
[2019-06-18] MEDS: INSULIN LISPRO SLIDING SCALE 100 UNITS/ML VIAL SUBQ PRN (21:09)
--- NOTE | 2019-06-18 21:30 | NUR ---
PATIENT COMPLETED HEMODIALYSIS WITH 2L OUT. PATIENT IS IN STABLE CONDITION. NO C/O PAIN. NO S/SX ACUTE DISTRESS. REPOSITIONED FOR COMFORT. CALL LIGHT WITHIN REACH. WILL CONTINUE TO MONITOR.
--- NOTE | 2019-06-18 23:05 | NUR ---
MADE ROUNDS. PATIENT ASLEEP AND IN STABLE CONDITION. NO C/O PAIN. NO S/SX ACUTE DISTRESS. CALL LIGHT WITHIN REACH. WILL CONTINUE TO MONITOR.
[2019-06-18 23:12] LABS: BARBITURATE, URINE NEGATIVE ng/ml (NEG <=200); BENZODIAZEPINE, URINE POSITIVE ng/mL (NEG <=200); CANNABINOID, URINE NEGATIVE ng/mL (NEG <=50); COCAINE, URINE NEGATIVE ng/mL (NEG <=300); OPIATE, URINE NEGATIVE ng/mL (NEG <=2000); PHENCYCLIDINE SCREEN,URINE NEGATIVE ng/mL (NEG <=25)
[2019-06-19] VITALS: BP 90/53
[2019-06-19 00:03] LABS: APPEARANCE,URINE CLOUDY (CLEAR); BILIRUBIN,URINE NEGATIVE (NEGATIVE); BLOOD, URINE 3+ (NEGATIVE); COLOR,URINE YELLOW (YELLOW); UGLUCOSE NEGATIVE (NEGATIVE)
[2019-06-19 00:04] LABS: LEUKOCYTE ESTERASE ,URINE 3+ (NEGATIVE); NITRITE, URINE NEGATIVE (NEGATIVE); RBC,URINE 0-5 /HPF (0-5); WBC,URINE 60-80 /HPF (0-5)
[2019-06-19 01:01] LABS: CHOL/HDL RATIO 2.5 (1-4.5)
[2019-06-19] MEDS: GAUZE TP SCH ×2 (01:01→13:22)
--- NOTE | 2019-06-19 01:09 | NUR ---
PATIENT ASLEEP AND IN STABLE CONDITION. NO C/O PAIN. NO S/SX ACUTE DISTRESS. CALL LIGHT WITHIN REACH. WILL CONTINUE TO MONITOR.
--- NOTE | 2019-06-19 03:52 | NUR ---
PATIENT ASLEEP AND IN STABLE CONDITION. NO C/O PAIN. NO S/SX ACUTE DISTRESS. CALL LIGHT WITHIN REACH. WILL CONTINUE TO MONITOR.
[2019-06-19] MEDS: SODIUM CHLORIDE FLUSH 10 ML SYR IVF SCH ×3 (05:04→21:19)
--- NOTE | 2019-06-19 05:22 | NUR ---
MADE ROUNDS. PATIENT IS ASLEEP AND IN STABLE CONDITION. NO C/O PAIN. NO S/SX ACUTE DISTRESS. CALL LIGHT WITHIN REACH. WILL CONTINUE TO MONITOR.
[2019-06-19 06:34] LABS: BASOPHILS % (AUTO) 0.1 % (0.0-2.0); EOSINOPHILS # (AUTO) 0.5 K/uL (0-0.4); EOSINOPHILS % (AUTO) 7.6 % (0.0-4.0); HEMOGLOBIN 13.6 g/dL (12.0-18.0); LYMPHOCYTES # (AUTO) 0.8 K/uL (2.0-11.5); LYMPHOCYTES % (AUTO) 12.6 % (20.5-51.1); MEAN CORPUSCULAR HEMOGLOBIN 30 pg (27-31); MEAN CORPUSCULAR HGB CONC 32 g/dL (33-37); MEAN CORPUSCULAR VOLUME 91.7 fL (80-94); MONOCYTES # (AUTO) 0.4 K/uL (0.8-1.0); MONOCYTES % (AUTO) 6.8 % (1.7-9.3); NEUTROPHILS # (AUTO) 4.7 K/uL (1.8-7.7); NEUTROPHILS % (AUTO) 72.9 % (42.2-75.2); PLATELET COUNT (AUTO) 102 K/uL (140-450); RED BLOOD CELL COUNT(AUTO) 4.58 MIL/uL (4.20-6.10); RED CELL DISTRIBUTION WIDTH 15.4 % (11.6-13.7); WHITE BLOOD COUNT (AUTO) 6.5 K/uL (4.8-10.8)
[2019-06-19] MEDS: BLOOD GLUCOSE MONITORING 1 DEV DEV FS SCH ×4 (06:37→21:19)
[2019-06-19] MEDS: INSULIN LISPRO 100 UNITS/ML VIAL SUBQ SCH ×4 (06:37→21:00)
[2019-06-19 07:02] LABS: ANION GAP 11.7 (8-16); CARBON DIOXIDE 31.4 mmol/L (21-32); CREATININE 1.5 mg/dL (0.6-1.3); POTASSIUM 4.1 mmol/L (3.5-5.1)
--- NOTE | 2019-06-19 07:16 | NUR ---
ENDORSED PATIENT IN STABLE CONDITION TO AM SHIFT FOR CONTINUITY OF CARE.
--- NOTE | 2019-06-19 07:21 | NUR ---
RECEIVED BEDSIDE REPORT FROM NIGHTSHIFT NURSE. PT RESTING IN BED. ABLE TO MAKE NEEDS KNOWN. RESPIRATIONS EVEN AND UNLABORED WITH NO SOB OR RESPIRATORY DISTRESS. SKIN WARM AND DRY TO TOUCH. IV SITE IN LEFT HAND 24G IS CLEAN, DRY, AND INTACT. SAFETY MEASURES IN PLACE. WILL CONTINUE TO MONITOR
[2019-06-19 07:24] LABS: MAGNESIUM 1.9 mg/dL (1.8-2.4); PHOSPHORUS 4.1 mg/dL (2.5-4.9)
--- NOTE | 2019-06-19 07:33 | NUR ---
PATIENT HAS BEEN SCREENED AND CATEGORIZED HIGH NUTRITION RISK. PATIENT WILL BE SEEN WITHIN 1-2 DAYS OF ADMISSION. 06/18/19 06/19/[address]
[2019-06-19 08:00] VITALS: BP 121/55
[2019-06-19] MEDS: ARIPiprazole 10 MG TAB PO SCH (09:27)
[2019-06-19] MEDS: ZINC SULF 220 MG CAP PO SCH (09:28)
[2019-06-19] MEDS: SENNA 8.6 MG TAB PO SCH ×2 (09:29→21:17)
[2019-06-19] MEDS: DOCUSATE SODIUM 100 MG GELCAP PO SCH (09:29)
[2019-06-19] MEDS: CALCIUM ACETATE 667 MG TAB PO SCH ×3 (09:30→16:37)
--- NOTE | 2019-06-19 09:30 | NUR ---
ADMINISTERED SCHED MED PRESCRIBED PER MD ORDER. PT TOLERATED WELL. MEDICATION EDUCATION PERFORMED. PT VERBALIZED UNDERSTANDING. SAFETY MEASURES IN PLACE. WILL CONTINUE TO MONITOR
[2019-06-19] MEDS: VIT-B COMP/VIT-C/FOLIC ACID 1 TAB PO SCH (09:31)
[2019-06-19] MEDS: ATORVASTATIN 20 MG TAB PO SCH (10:06)
[2019-06-19] MEDS: FERROUS SULFATE 325 MG TABEC PO SCH (10:06)
--- NOTE | 2019-06-19 10:06 | NUR ---
(06/19/19) RD INITIAL ASSESSMENT COMPLETED PLEASE REFER TO NUTRITION ASSESSMENT UNDER CARE ACTIVITY FOR ESTIMATED NUTRITIONAL NEEDS. RD RECOMMENDATIONS: 1. RECOMMED CONTINUE ON CCHO 60GM, RENAL, MECHANICAL SOFT DIET TOLERATED. 2. CONSULT RDN PRN. 3. RD WILL F/U 3-5 DAYS; MODERATE RISK. EDMUND SHINE, , RDN
[2019-06-19] MEDS: ASCORBIC ACID 500 MG TAB PO SCH ×2 (10:07→21:17)
[2019-06-19] MEDS ORDERED: MIDODRINE 5 MG TAB PO SCH (10:27)
--- NOTE | 2019-06-19 10:30 | NUR ---
PT REFUSED TO BE TURNED AND REPOSITIONED PER NOODLE PRESS OPERATOR. PT STARTED YELLING "MAMA" WHEN THE NOODLE PRESS OPERATOR LEFT HIM ON HIS SIDE. PT WOULD NOT STOP SCREAMING "MAMA" UNTIL HE WAS REPOSITIONED ON HIS BACK. INSTRUCTED PT THE IMPORTANCE OF REPOSITIONING. PT INSISTED ON STAYING ON HIS BACK. SAFETY MEASURES IN PLACE. WILL CONTINUE TO MONITOR
--- NOTE | 2019-06-19 10:42 | NUR ---
ADMINISTERED SCHED MED PRESCRIBED PER MD ORDER. PT TOLERATED WELL. MEDICATION EDUCATION PERFORMED. PT VERBALIZED UNDERSTANDING. SAFETY MEASURES IN PLACE. WILL CONTINUE TO MONITOR
--- NOTE | 2019-06-19 11:30 | NUR ---
PT BLOOD SUGAR IS 136. NO INSULIN COVERAGE NEEDED AT THIS TIME. SAFETY MEASURES IN PLACE. WILL CONTINUE TO MONITOR
--- NOTE | 2019-06-19 12:15 | NUR ---
ADMINISTERED SCHED MED PRESCRIBED PER MD ORDER. PT TOLERATED WELL. MEDICATION EDUCATION PERFORMED. PT VERBALIZED UNDERSTANDING. SAFETY MEASURES IN PLACE. WILL CONTINUE TO MONITOR
--- NOTE | 2019-06-19 13:15 | NUR ---
PERFORMED WOUND CARE PRESCRIBED PER MD ORDER. PT TOLERATED WELL. SAFETY MEASURES IN PLACE WILL CONTINUE TO MONITOR.
[2019-06-19] MEDS: SKINTEGRITY HYDROGEL TP SCH (13:22)
--- NOTE | 2019-06-19 14:30 | NUR ---
PT REFUSED TO BE TURNED AND REPOSITIONED PER DIRECTOR STRATEGIC ACCOUNT MANAGEMENT. PT STARTED YELLING "MAMA" WHEN THE DIRECTOR STRATEGIC ACCOUNT MANAGEMENT LEFT HIM ON HIS SIDE. PT WOULD NOT STOP SCREAMING "MAMA" UNTIL HE WAS REPOSITIONED ON HIS BACK. INSTRUCTED PT THE IMPORTANCE OF REPOSITIONING. PT INSISTED ON STAYING ON HIS BACK. SAFETY MEASURES IN PLACE. WILL CONTINUE TO MONITOR
--- NOTE | 2019-06-19 15:10 | NUR ---
HOURLY ROUNDING. PT RESTING IN BED. ABLE TO MAKE NEEDS KNOWN. RESPIRATIONS EVEN AND UNLABORED WITH NO SOB OR RESPIRATORY DISTRESS. SKIN WARM AND DRY TO TOUCH. SAFETY MEASURES IN PLACE. WILL CONTINUE TO MONITOR
[2019-06-19 16:00] VITALS: BP 112/60
--- NOTE | 2019-06-19 16:39 | NUR ---
PT COMPLAINED OF SEVERE PAIN. PRN PAIN MEDICATION ADMINISTERED PRESCRIBED PER MD ORDER. PT TOLERATED WELL. MEDICATION EDUCATION PERFORMED. PT VERBALIZED UNDERSTANDING. SAFETY MEASURES IN PLACE. WILL CONTINUE TO MONITOR
--- NOTE | 2019-06-19 17:45 | NUR ---
PT EATING DINNER VIA VISUAL EDUCATION DIRECTOR. NO DISTRESS NOTED. NO COMPLAINTS OR CONCERNS AT THIS TIME. SAFETY MEASURES IN PLACE. WILL CONTINUE TO MONITOR
--- NOTE | 2019-06-19 18:23 | NUR ---
PT CALLED AND COMPLAINED OF ANXIETY. PRN ATIVAN ADMINISTERED PRESCRIBED PER MD ORDER. PT TOLERATED WELL. MEDICATION EDUCATION PERFORMED. PT VERBALIZED UNDERSTANDING. SAFETY MEASURES IN PLACE. WILL CONTINUE TO MONITOR
--- NOTE | 2019-06-19 19:15 | NUR ---
ENDORSED AT BEDSIDE WITH NIGHTSHIFT NURSE. PT RESTING IN BED. ABLE TO MAKE NEEDS KNOWN. RESPIRATIONS EVEN AND UNLABORED WITH NO SOB OR RESPIRATORY DISTRESS. SKIN WARM AND DRY TO TOUCH. SAFETY MEASURES IN PLACE. PT IS STABLE
--- NOTE | 2019-06-19 19:30 | NUR ---
RECEIVED PATIENT FROM DAY SHIFT NURSE. PATIENT IS AWAKE AND COOPERATIVE. RESPIRATION EVEN UNLABORED ON ROOM AIR. NO DISTRESS NOTED. SKIN IS WARM AND DRY. IV PATENT AND INTACT. SALINE LOCK. SUPRAPUBIC CATHETER PATENT, CLEAR YELLOW URINE NOTED IN DRAINAGE BAG. COLOSTOMY BAG IN PLACE AND INTACT. ALL SAFETY MEASURE PRECAUTIONS IN PLACE. BED IS AT LOW POSITION CALL LIGHT WITHIN REACH. WILL CONTINUE TO MONITOR.
[2019-06-19] MEDS: INSULIN LISPRO SLIDING SCALE 100 UNITS/ML VIAL SUBQ PRN (21:15)
[2019-06-19] MEDS: APIXABAN 2.5 MG TAB PO SCH (21:16)
--- NOTE | 2019-06-19 21:16 | NUR ---
PATIENT BLOOD SUGAR 165. ACCORDING TO DAY SHIFT NURSE DON'T ADMINISTER SCHEDULED HUMALOG 4UNITS PER DOCTORS ORDER. HUMALOG 4UNITS NOT GIVEN INSTEAD GAVE 2 UNITS OF HUMALOG PER SLIDING SCALE PROTOCOL. WILL CONTINUE TO MONITOR.
--- NOTE | 2019-06-19 21:16 | NUR ---
ALL SCHEDULED MEDS WERE GIVEN PER ORDER. NO ASE NOTED. WILL CONTINUE TO MONITOR.
--- NOTE | 2019-06-19 23:17 | NUR ---
CHECKED PATIENT. PATIENT IS AWAKE, WATCHING TV RESPIRATION EVEN UNLABORED ON ROOM AIR. NO DISTRESS NOTED. WILL CONTINUE TO MONITOR.
[2019-06-20] VITALS: BP 91/51
--- NOTE | 2019-06-20 00:37 | NUR ---
VITALS WERE TAKEN. PATIENT IS IN STABLE CONDITION. NO DISTRESS NOTED. WILL CONTINUE TO MONITOR.
--- NOTE | 2019-06-20 01:00 | NUR ---
PERFORMED DRESSING CHANGE LEFT HEEL. PATIENT TOLERATED IT WELL. DIDN'T TAKE PICTURE AND CHANGE DRESSING IN THE SACRAL AREA BECAUSE PATIENT IS POD#1 AND NO DOCTORS ORDER FOR DRESSING CHANGE THIS MOMENT. SPOKE WITH FAIRY CHARGE AND AWARE OF THE SITUATION.
[2019-06-20] MEDS: GAUZE TP SCH ×2 (01:13→13:00)
--- NOTE | 2019-06-20 02:42 | NUR ---
CHANGED PATIENT. PROVIDED GOOD PERICARE AND SUPRAPUBIC CARE. WILL CONTINUE TO MONITOR.
--- NOTE | 2019-06-20 04:00 | NUR ---
CHECKED PATIENT. PATIENT SLEEPING RESPIRATION EVEN UNLABORED ON ROOM AIR. NO DISTRESS NOTED. WILL CONTINUE TO MONITOR.
[2019-06-20] MEDS: SODIUM CHLORIDE FLUSH 10 ML SYR IVF SCH ×2 (05:06→12:53)
[2019-06-20 06:32] LABS: BASOPHILS % (AUTO) 0.7 % (0.0-2.0); EOSINOPHILS # (AUTO) 0.8 K/uL (0-0.4); EOSINOPHILS % (AUTO) 11.9 % (0.0-4.0); HEMATOCRIT 37.8 % (36-52); HEMOGLOBIN 12.1 g/dL (12.0-18.0); LYMPHOCYTES # (AUTO) 1.6 K/uL (2.0-11.5); LYMPHOCYTES % (AUTO) 24.9 % (20.5-51.1); MEAN CORPUSCULAR HEMOGLOBIN 29 pg (27-31); MEAN CORPUSCULAR HGB CONC 32 g/dL (33-37); MONOCYTES # (AUTO) 0.5 K/uL (0.8-1.0); MONOCYTES % (AUTO) 7.9 % (1.7-9.3); NEUTROPHILS # (AUTO) 3.5 K/uL (1.8-7.7); NEUTROPHILS % (AUTO) 54.6 % (42.2-75.2); PLATELET COUNT (AUTO) 101 K/uL (140-450); RED BLOOD CELL COUNT(AUTO) 4.15 MIL/uL (4.20-6.10); RED CELL DISTRIBUTION WIDTH 15.5 % (11.6-13.7); WHITE BLOOD COUNT (AUTO) 6.3 K/uL (4.8-10.8)
[2019-06-20] MEDS: BLOOD GLUCOSE MONITORING 1 DEV DEV FS SCH ×3 (06:43→16:33)
[2019-06-20] MEDS: INSULIN LISPRO 100 UNITS/ML VIAL SUBQ SCH (06:44)
--- NOTE | 2019-06-20 06:44 | NUR ---
BLOOD SUGAR 92. SCHEDULED HUMALOG 4 UNITS NOT GIVEN. INFORMED.
[2019-06-20 06:56] LABS: ANION GAP 11.4 (8-16); CARBON DIOXIDE 30.5 mmol/L (21-32); CREATININE 2.3 mg/dL (0.6-1.3); POTASSIUM 3.9 mmol/L (3.5-5.1)
[2019-06-20 06:57] LABS: MAGNESIUM 1.8 mg/dL (1.8-2.4); PHOSPHORUS 4.7 mg/dL (2.5-4.9)
--- NOTE | 2019-06-20 07:18 | NUR ---
ENDORSED PATIENT TO DAY SHIFT NURSE. PATIENT IS IN STABLE CONDITION
--- NOTE | 2019-06-20 07:20 | NUR ---
RECEIVED BEDSIDE REPORT FROM NIGHT NURSE. PATIENT IN BED, ASLEEP, EASILY AROUSABLE BY NAME OR TOUCH. SKIN WARM AND DRY TO TOUCH. RESPIRATION EVEN AND UNLABORED. IV INTACT AND PATENT TO LEFT HAND. PLANS OF CARE DISCUSSED. SAFETY MEASURES IN PLACE. BED IN LOW POSITION. CALL LIGHT WITHIN REACH.
[2019-06-20 08:00] VITALS: BP 115/62
[2019-06-20] MEDS ORDERED: MIDODRINE 5 MG TAB PO SCH (09:00)
--- NOTE | 2019-06-20 09:50 | NUR ---
PATIENT CHANGED, PATIENT REFUSED TO BE REPOSITIONED. EDUCATED AND ENCOURAGED PATIENT, PATIENT STILL REFUSED.
[2019-06-20] MEDS: CALCIUM ACETATE 667 MG TAB PO SCH ×3 (09:58→17:35)
[2019-06-20] MEDS: SENNA 8.6 MG TAB PO SCH (09:58)
[2019-06-20] MEDS: DOCUSATE SODIUM 100 MG GELCAP PO SCH (09:59)
[2019-06-20] MEDS: ATORVASTATIN 20 MG TAB PO SCH (09:59)
[2019-06-20] MEDS: FERROUS SULFATE 325 MG TABEC PO SCH (09:59)
[2019-06-20] MEDS: ARIPiprazole 10 MG TAB PO SCH (09:59)
[2019-06-20] MEDS: ZINC SULF 220 MG CAP PO SCH (10:00)
[2019-06-20] MEDS: VIT-B COMP/VIT-C/FOLIC ACID 1 TAB PO SCH (10:00)
--- NOTE | 2019-06-20 10:05 | NUR ---
AM MEDICATIONS GIVEN AND TOLERATED WELL. PATIENT AAOX3. NO S/S OF DISTRESS NOTED. CALL LIGHT WITHIN REACH.
[2019-06-20] MEDS: APIXABAN 2.5 MG TAB PO SCH (10:06)
[2019-06-20] MEDS: ASCORBIC ACID 500 MG TAB PO SCH (10:13)
--- NOTE | 2019-06-20 10:45 | NUR ---
DIALYSIS NURSE BED AT BESIDE.
[2019-06-20] MEDS: SKINTEGRITY HYDROGEL TP SCH (13:00)
--- NOTE | 2019-06-20 13:40 | NUR ---
PER DIALYSIS NURSE OUTPUT 1.5LITERS. PATIENT HAS DRESSING INTACT AND DRY TO LEFT FEMORAL AV FISTULA.
--- NOTE | 2019-06-20 15:00 | NUR ---
ROUNDS MADE. PATIENT AAOX3. NO S/S OF DISTRESS NOTED. CALL LIGHT WITHIN REACH.
[2019-06-20 16:00] VITALS: BP 136/59
--- NOTE | 2019-06-20 17:00 | NUR ---
REPORT GIVEN TO MICHELE DOBBINSN FROM [facility]. PATIENT TO BE PICKED UP BY [facility] @ [id number].
--- NOTE | 2019-06-20 17:15 | NUR ---
PT REMAINS IN STABLE CONDITION. NO S/S OF DISTRESS NOTED.
--- NOTE | 2019-06-20 18:53 | NUR ---
PATIENT AWAITING FOR TRANSPORT TO [facility]. SALES CONSULTANT RESIDENTIAL MANAGER BY [facility] SALES CONSULTANT RESIDENTIAL MANAGER TIME 1830.
--- NOTE | 2019-06-20 19:00 | NUR ---
FOLLOWED UP WITH [facility]. [facility] STATED THEY ARE PICKING UP PATIENT 7:30 PM.
--- NOTE | 2019-06-20 19:20 | NUR ---
PATIENT IN STABLE CONDITION, WILL ENDORSE TO NIGHT NURSE.
--- NOTE | 2019-06-20 19:21 | NUR ---
RECEIVED BEDSIDE REPORT FROM DAY SHIFT NURSE. PATIENT IN BED, AWAKE, WAITING FOR TRANSPORTATION TEAM TO BE TRANSFERRED. SKIN WARM AND DRY TO TOUCH. RESPIRATION EVEN AND UNLABORED. CALL LIGHT WITHIN REACH.
--- NOTE | 2019-06-20 20:30 | NUR ---
TRANSPORTATION CAME TO PUMP HOUSE OPERATOR PT. PT DISCHARGED.
== END 2019-06-20 20:55 | DRG 466 ==
LOC: MED 10:35 → MTU 13:58 → INTOOBSV 13:58 → OBSVTOIN 06-18 07:19 → MTU 06-18 09:30
PROVIDERS: ADMIT General Practice; ATTEND General Practice
PROC: 5A1D70Z Performance of Urinary Filtration, Intermittent, Less than 6 Hours Per Day (ICD-10-PCS; principal; 2019-06-18)
PROC: 0JB70ZZ Excision of Back Subcutaneous Tissue and Fascia, Open Approach (ICD-10-PCS; 2019-06-18)
PROC: 0JPV3XZ Removal of Tunneled Vascular Access Device from Upper Extremity Subcutaneous Tissue and Fascia, Percutaneous Approach (ICD-10-PCS; 2019-06-18)
PROC: 5A1D70Z Performance of Urinary Filtration, Intermittent, Less than 6 Hours Per Day (ICD-10-PCS; 2019-06-20)
DX: T82.41XA Breakdown (mechanical) of vascular dialysis catheter, initial encounter (principal); I12.0 Hypertensive chronic kidney disease with stage 5 chronic kidney disease or end stage renal disease; N17.0 Acute kidney failure with tubular necrosis; I21.A1 Myocardial infarction type 2; G93.1 Anoxic brain damage, not elsewhere classified; L89.159 Pressure ulcer of sacral region, unspecified stage; E11.22 Type 2 diabetes mellitus with diabetic chronic kidney disease; E11.52 Type 2 diabetes mellitus with diabetic peripheral angiopathy with gangrene; N18.6 End stage renal disease; Z99.2 Dependence on renal dialysis; Z88.8 Allergy status to other drugs, medicaments and biological substances; F41.9 Anxiety disorder, unspecified; E78.5 Hyperlipidemia, unspecified; D63.8 Anemia in other chronic diseases classified elsewhere; F25.9 Schizoaffective disorder, unspecified; G82.20 Paraplegia, unspecified; I25.10 Atherosclerotic heart disease of native coronary artery without angina pectoris; Y71.2 Prosthetic and other implants, materials and accessory cardiovascular devices associated with adverse incidents; Z86.718 Personal history of other venous thrombosis and embolism; Z86.73 Personal history of transient ischemic attack (TIA), and cerebral infarction without residual deficits; Z93.3 Colostomy status
CPT/HCPCS: 99285; G0378; 36415; 70450; 71045; 80048; 80053; 80305; 81001; 82140; 82607; 82728; 82746; 82948; 83036; 83540; 83690; 83735; 83880; 84100; 84443; 84484; 85025; 85045; 85610; 85730; 87081; 87086; 93005; 93970; A6248; J0696; J1815; J2001; J2060; J2270; J7060; Q0092